=== PATIENT | female | born 1960 | race Caucasian/White ===

== ENCOUNTER 2017-08-09 15:50 | Emergency (ER) | payer BC, OTHER ==
--- NOTE | 2017-08-09 18:31 | UC ---
Respiratory Complaint HPI - HPI Summary HPI Summary: right side of mid back hurts when she takes a deep breath or coughs, has been sick with URI all week, daughter has similar symptoms - History of Current Complaint Chief Complaint: UCBackPain Stated Complaint: RIGHT SIDE BACK PAIN Time Seen by Provider: 08/09/17 18:24 Hx Obtained From: Patient Hx Last Menstrual Period: Seven months ago ?: No Onset/Duration: Gradual Onset, Lasting Days - 7, Still Present Timing: Constant Severity Initially: Mild Severity Currently: Moderate Character: Cough: Nonproductive Aggravating Factors: Deep Breaths, Recumbent Position Alleviating Factors: Nothing Associated Signs And Symptoms: Positive: Dyspnea, Pleuritic Chest Pain, Wheezing , URI, Sinus Discomfort - Allergies/Home Medications Allergies/Adverse Reactions: Allergies Allergy/AdvReac Type Severity Reaction Status Date / Time Cephalexin [From Keflex] Allergy Intermediate Rash Verified 08/09/17 16:29 Erythromycin Allergy Intermediate Hives Verified 08/09/17 16:29 Eggs or Egg-derived Products Allergy Shortness Verified 02/13/16 15:55 of Breath Soy Allergy Allergy Shortness Verified 02/13/16 15:55 of Breath PMH/Surg Hx/FS Hx/Imm Hx Previously Healthy: No - Arthritis Respiratory History: COPD - Surgical History Surgical History: Yes Surgery Procedure, Year, and Place: L lumpectomy - 2007. cervical cancer - Family History Known Family History: Positive: Unknown - Social History Occupation: Employed Full-time Lives: With Family Alcohol Use: None Substance Use Type: Prescribed Smoking Status (MU): Never Smoked Tobacco Review of Systems Constitutional: Negative Skin: Negative Eyes: Negative ENT: Negative Respiratory: Shortness Of Breath, Cough Cardiovascular: Negative Gastrointestinal: Negative Genitourinary: Negative Motor: Negative Neurovascular: Negative Musculoskeletal: Arthralgia - mid right side of her back Neurological: Negative Psychological: Negative Is Patient Immunocompromised?: Yes - on methotrexate All Other Systems Reviewed And Are Negative: No Physical Exam Triage Information Reviewed: Yes Appearance: No Pain Distress, Ill-Appearing - acute and chronic, Obese Vital Signs: Initial Vital Signs Temp 98.4 F 08/09/17 16:20 Pulse 68 08/09/17 16:20 Resp 16 08/09/17 16:20 BP 125/77 08/09/17 16:20 Pulse Ox 97 08/09/17 16:20 Vital Signs Reviewed: Yes Eye Exam: Normal Eyes: Positive: Conjunctiva Clear ENT Exam: Normal ENT: Positive: Normal ENT inspection, Hearing grossly normal, Pharynx normal, TMs normal. Negative: Nasal congestion, Nasal drainage, Trismus, Muffled/ hoarse voice Dental Exam: Normal Neck exam: Normal Neck: Positive: Supple, Nontender, No Lymphadenopathy Respiratory Exam: Normal Respiratory: Positive: Chest non-tender, No respiratory distress, No accessory muscle use, Decreased breath sounds Cardiovascular Exam: Normal Cardiovascular: Positive: RRR, No Murmur, Pulses Normal, Brisk Capillary Refill Abdominal Exam: Normal Abdomen Description: Positive: Nontender, No Organomegaly, Soft Bowel Sounds: Positive: Present Musculoskeletal Exam: Normal Musculoskeletal: Positive: Strength Intact, ROM Intact Neurological Exam: Normal Neurological: Positive: Alert, Muscle Tone Normal Psychological Exam: Normal Psychological: Positive: Normal Response To Family, Age Appropriate Behavior Skin Exam: Normal UC Diagnostic Evaluation - Laboratory O2 Sat by Pulse Oximetry: 97 - Radiology Xray Interpretation: Positive (See Comments) - COPD Radiology Interpretation Completed By: ED Physician, Radiologist Re-Evaluation - Re-Evaluation First Eval Change: Improved - after neb improved aeration of lungs, feels better Respiratory Course/Dx - Course Course Of Treatment: prednisone, zithromax, bronchodilators, increase fluids, follow with pcp - Differential Dx/Diagnosis Differential Diagnosis/HQI/PQRI: Asthma, Bronchitis, Laryngitis, Lower Resp Infection, Sinusitis Provider Diagnoses: Acute exacerbation of COPD Discharge - Discharge Plan Condition: Stable Disposition: HOME Prescriptions: Albuterol 2.5MG/3ML (0.083%)* [Ventolin 2.5 MG/3 ML NEB.DONALD*] 2.5 mg INH Q6H PRN #1 box PRN Reason: cough/wheeze/chest tightness Albuterol HFA INHALER* [Ventolin HFA Inhaler*] 2 puff INH Q6H PRN #1 mdi PRN Reason: cough/wheeze/chesttighness Azithromycin TAB* [Zithromax TAB (Z-TRIPP) 250 mg #6 tabs] 2 tab PO .TODAY, THEN 1 DAILY #6 tab predniSONE TAB* [Deltasone TAB*] 20 mg PO DAILY #9 tab Patient Education Materials: How to Use a Metered-Dose Inhaler (ED), COPD ( Chronic Obstructive Pulmonary Disease) (ED), Nutrition Guidelines for People with COPD (ED) Referrals: Davi Donovan MD [Primary Care Provider] - 3 Days
[2017-08-09] MEDS ORDERED: Albuterol/Ipratropium NEB.SOL* Albuterol 2.5 MG/Ipratropium 0.5 MG 3 ML INH ONE (18:33)
[2017-08-09] MEDS ORDERED: Albuterol 2.5 MG/3 ML NEB.SOL* (0.083%) ONE (18:41)
[2017-08-09] MEDS ORDERED: Ipratropium 0.5MG/2.5ML NEB* 0.5 MG/2.5 ML NEB.SOLN ONE (18:41)
[2017-08-09] MEDS ORDERED: Albuterol 2.5 MG/3 ML NEB.SOL* (0.083%) INH ONE (18:49)
[2017-08-09] MEDS ORDERED: Ipratropium 0.5MG/2.5ML NEB* 0.5 MG/2.5 ML NEB.SOLN INH ONE (18:49)
[2017-08-09 18:59] VITALS: BP 136/96
--- NOTE | 2017-08-09 19:01 | RAD ---
INDICATION: Chest pain and shortness of breath. History of pneumonia. Chronic obstructive pulmonary disease. COMPARISON: No relevant prior exams available on the [facility] PACS for comparison. TECHNIQUE: Dual energy PA and routine lateral views of the chest were obtained. REPORT: Elevated lung volumes and both diffuse mild prominence of the interstitial markings and patchy rarefaction of the mid to upper lung zone interstitial markings. No focal pulmonary lesion, compelling alveolar consolidation, pleural effusion, pneumothorax. The heart, pulmonary vasculature, and mediastinal contours are unremarkable. Unremarkable soft tissue contours and osseous structures. IMPRESSION: Stigmata of obstructive lung disease. No acute pulmonary or cardiac process evident.
[2017-08-09] MEDS ORDERED: Albuterol HFA INHALER* 8 gm MDI INH ONE (19:31)
== END 2017-08-09 19:27 | disposition home or self-care (01) ==
LOC: UCCORT 15:50
DX: J44.1 Chronic obstructive pulmonary disease with (acute) exacerbation (principal); M54.9 Dorsalgia, unspecified
CPT/HCPCS: 71020; 99213; A9270-GY; G0463; J7644

== ENCOUNTER 2017-10-24 17:16 | Emergency (ER) | payer BC, OTHER ==
[2017-10-24 17:28] VITALS: BP 134/69
--- NOTE | 2017-10-24 18:00 | UC ---
Respiratory Complaint HPI - HPI Summary HPI Summary: 57 yo female with COPD presents with a <48 hr hx of f/c, cough,wheezing, runny nose, sore throat and myalgias no CP no n/v/d - History of Current Complaint Chief Complaint: UCGeneralIllness Stated Complaint: UPPER RESPIRATORY COMPLAINT Time Seen by Provider: 10/24/17 17:32 Hx Obtained From: Patient Hx Last Menstrual Period: Seven months ago Onset/Duration: Gradual Onset, Lasting Hours Timing: Constant Severity Initially: Moderate Severity Currently: Moderate Pain Intensity: 4 Pain Scale Used: 0-10 Numeric Character: Cough: Nonproductive Aggravating Factors: Nothing Alleviating Factors: Nothing Associated Signs And Symptoms: Positive: Fever, Chills, Nasal Congestion, Hoarseness, Sinus Discomfort - Allergies/Home Medications Allergies/Adverse Reactions: Allergies Allergy/AdvReac Type Severity Reaction Status Date / Time Cephalexin [From Keflex] Allergy Intermediate Rash Verified 10/24/17 17:28 Erythromycin Allergy Intermediate Hives Verified 10/24/17 17:28 Eggs or Egg-derived Products Allergy Shortness Verified 10/24/17 17:28 of Breath Soy Allergy Allergy Shortness Verified 10/24/17 17:28 of Breath Home Medications: Home Medications Meloxicam(NF) [Mobic(NF)] 7.5 mg PO DAILY 10/24/17 [History Confirmed 10/24/17] PMH/Surg Hx/FS Hx/Imm Hx Previously Healthy: Yes - RA Respiratory History: COPD, Pneumonia - Surgical History Surgical History: Yes Surgery Procedure, Year, and Place: L lumpectomy - 2007. cervical cancer - Family History Known Family History: Positive: Hypertension, Diabetes, Other - RA - Social History Alcohol Use: None Substance Use Type: Prescribed Smoking Status (MU): Never Smoked Tobacco - Immunization History Most Recent Influenza Vaccination: none Review of Systems Constitutional: Fever, Chills, Fatigue Skin: Negative Eyes: Negative ENT: Sore Throat, Ear Ache, Nasal Discharge, Sinus Congestion, Sinus Pain/ Tenderness Respiratory: Cough Cardiovascular: Negative Gastrointestinal: Negative Genitourinary: Negative Motor: Negative Neurovascular: Negative Musculoskeletal: Negative Neurological: Weakness Psychological: Negative All Other Systems Reviewed And Are Negative: Yes Physical Exam Triage Information Reviewed: Yes Appearance: Well-Appearing, No Pain Distress, Well-Nourished Vital Signs: Initial Vital Signs Temp 97.6 F 10/24/17 17:24 Pulse 77 10/24/17 17:24 Resp 16 10/24/17 17:24 BP 134/69 10/24/17 17:24 Pulse Ox 98 10/24/17 17:24 Vital Signs Reviewed: Yes Eyes: Positive: Conjunctiva Clear ENT: Positive: Hearing grossly normal, Nasal congestion, Nasal drainage, Sinus tenderness, Uvula midline. Negative: TMs normal, TM bulging, TM dull, TM red, Tonsillar swelling, Tonsillar exudate, Trismus, Muffled voice, Hoarse voice, Dental tenderness Neck: Positive: Supple, Nontender, No Lymphadenopathy Respiratory: Positive: No respiratory distress, No accessory muscle use, Wheezing Cardiovascular: Positive: RRR, No Murmur Musculoskeletal: Positive: ROM Intact, No Edema Neurological: Positive: Alert Psychological Exam: Normal Skin Exam: Normal UC Diagnostic Evaluation - Laboratory O2 Sat by Pulse Oximetry: 98 - normal/not hypoxic Respiratory Course/Dx - Course Course Of Treatment: influenza (-) - Differential Dx/Diagnosis Provider Diagnoses: acute bronchitis with bronchospasm Discharge - Discharge Plan Condition: Stable Disposition: HOME Prescriptions: Albuterol HFA INHALER* [Ventolin HFA Inhaler*] 2 puff INH QID #1 mdi Amoxicillin/Clavulanate TAB* [Augmentin TAB 875*] 875 mg PO BID #20 tab Prednisone [Deltasone] 40 mg PO DAILY #10 tab Patient Education Materials: Acute Bronchitis (ED) Referrals: Davi Donovan MD [Primary Care Provider] - 3 Days (if not better) Additional Instructions: to ER for new or worsening symptoms
== END 2017-10-24 18:39 | disposition home or self-care (01) ==
LOC: UCCORT 17:16
DX: J20.9 Acute bronchitis, unspecified (principal); J44.0 Chronic obstructive pulmonary disease with (acute) lower respiratory infection; M06.9 Rheumatoid arthritis, unspecified; Z88.1 Allergy status to other antibiotic agents
CPT/HCPCS: 87502; 99212; G0463

== ENCOUNTER 2018-04-29 15:16 | Emergency (ER) | payer BC ==
--- OUTSIDE RECORDS SUMMARY | 2018-04-29 16:05 | XMS REPORT ---
:1960 External Reference #:[id number] Author Organization [facility] Address [address] [place] [id number] Phone [phone] Care Team Providers Name Role Phone Davi Donovan MD Care Team Information Newsstand Vendor Unavailable Davi Donovan MD Primary Care Physician Unavailable Payers Type Date Identification Numbers Payment Provider Subscriber Commercial Effective: Policy Number: [id number] [place] 2011 Clint PayID: [id number] [address] [place] [address] Problems Date Description Provider Status Onset: 06/08/2012 Kidney stone Behzad Hunt M.D. Active Onset: 06/08/2012 Hematuria syndrome Behzad Hunt M.D. Active Onset: 03/16/2014 Urge incontinence of urine Behzad Hunt M.D. Active Onset: 03/16/2014 Female stress incontinence Behzad Hunt M.D. Active Family History Date Family Member(s) Problem(s) Comments Father Unknown Mother Lung Cancer Free Text Denies Prostate, Bladder, Kidney Cancer. No family history of kidney stones. Social History Type Date Description Comments Marital Status Patient is single Occupation developmental aide Cigarette Use 08/22/2014 Patient is a non-smoker Cigars non-smoker Pipe non-smoker ETOH Use Patient denies alcohol use Daily Caffeine 16 oz. daily Allergies, Adverse Reactions, Alerts Date Description Reaction Status Severity Comments 06/10/2012 Erythromycin rash or hard to breath, pt unsure active 06/10/2012 Keflex rash or hard to breath, pt unsure active Medications Medication Date Status Form Strength Qnty SIG Indications Ordering Provider Myrbetriq 03/16/ Active Tablets ER 25mg 30tabs 1 by N39.41 Gilbert, 2013 24HR mouth Wen M, every day M.D. Oxycodone HCL / Active Solution 5mg/5ML 4cc po q6 Unknown 0000 hr prn Morphine / Active Caps ER 30mg Unknown Sulfate ER 0000 24HR Morphine / Active Tablets 15mg TK 1 T PO Unknown Sulfate 0000 bid Utd. MDD 2 TS. Oxycodone HCL / Active Tablets 5mg TK 1 T PO Unknown 0000 Q 4 To 6 H Utd. MDD 4 TS. Folic Acid / Active Tablets 2mg Unknown 0000 Methotrexate / Active Tablets 2.5mg 7 pills Unknown 0000 daily Potassium / Active Tablets 75mg Unknown 0000 Vitamin D / Active Tablets 1000Unit 1 by Unknown 0000 mouth every day Calcium / Active Capsules 200-100-33 Unknown 600/Magnesium 0000 .3mg-mg-Un 300/Vitamin D it Amrix / Hx Caps ER 15mg Unknown 0000 - 24HR 2017 Methotrexate / Hx Tablets 2.5mg Take 4 Unknown 0000 - Tablets 02/10/ By Mouth 2017 Once A Week Vital Signs Date Vital Result Comment 02/11/2018 Height 60 inches 5'0" Weight 196.00 lb Weight in kg's 88.906 BMI (Body Mass Index) 38.3 kg/m2 BP Systolic 123 mmHg BP Diastolic 56 mmHg Heart Rate 75 /min 02/22/2015 Height 60 inches 5'0" Weight 217.00 lb Weight in kg's 98.431 BMI (Body Mass Index) 42.4 kg/m2 BP Systolic 127 mmHg right wrist audio BP Diastolic 86 mmHg right wrist audio Heart Rate 86 /min Body Temperature 98.9 F 02/21/2014 Height 60 inches 5'0" Weight 203.00 lb Weight in kg's 92.081 BMI (Body Mass Index) 39.6 kg/m2 BP Systolic 115 mmHg left wrist audio BP Diastolic 70 mmHg left wrist audio Heart Rate 76 /min Body Temperature 99.1 F 06/08/2012 Height 61 inches 5'1" Weight 188.00 lb Weight in kg's 85.277 BMI (Body Mass Index) 35.5 kg/m2 BP Systolic 122 mmHg right BP Diastolic 75 mmHg right Heart Rate 75 /min Post Void Residual 30 Body Temperature 97.7 F Results Test Date Test Result H/L Range Note 230 Ua Routine 02/11/2018 Ua Glucose Negative Ua Protein Negative Ua Nitrite Negative Ua Leuko Trace Ua Blood Negative Ua Color Yellow Ua Ketones Negative Ua Clarity Clear Ua Specific Morton 1.020 1.003-1.030 Ua PH 6.5 5.0-7.5 Ua Bilirubin Negative Ua Urobilinogen 1.0 E.U./dL 0.0-1.0 #Ua Routine 02/22/2015 Ua Glucose Negative Ua Protein Negative Ua Nitrite Negative Ua Leuko Negative Ua Blood Negative Ua Color yellow Ua Ketones Negative Ua Clarity clear Ua Specific Morton >=1.030 1.003-1.030 Ua PH 5.5 5.0-7.5 Ua Bilirubin Negative Ua Urobilinogen 1.0 E.U./dL 0.0-1.0 #Ua Routine 08/23/2014 Ua Glucose Negative Ua Protein Negative Ua Nitrite Negative Ua Leuko Trace Ua Blood Negative Ua Color yellow Ua Ketones Negative Ua Clarity clear Ua Specific Morton 1.015 1.003-1.030 Ua PH 7.5 5.0-7.5 Ua Bilirubin Negative Ua Urobilinogen 0.2 E.U./dL 0.0-1.0 Urine Culture Straight Cath 03/07/2014 Result (SEE NOTE) 1 #Ua Routine 02/21/2014 Ua Glucose Negative Ua Protein Negative Ua Nitrite Negative Ua Leuko Trace Ua Blood Negative Ua Color yellow Ua Ketones Negative Ua Clarity clear Ua Specific Morton 1.025 1.003-1.030 Ua PH 5.5 5.0-7.5 Ua Bilirubin Negative Ua Urobilinogen 0.2 E.U./dL 0.2-1 #Ua Routine 02/22/2013 Ua Glucose Negative Ua Protein Negative Ua Nitrite Negative Ua Leuko Trace Ua Blood Negative Ua Color Not Entered Ua Ketones Negative Ua Clarity Not Entered Ua Specific Morton 1.025 Ua PH 5.0 Ua Bilirubin Negative Ua Urobilinogen 0.2 E.U./dL #Ua Routine 06/18/2012 Ua Glucose Negative Ua Protein Negative Ua Nitrite Negative Ua Leuko Negative Ua Blood Negative Ua Color Not Entered Ua Ketones Negative Ua Clarity Not Entered Ua Specific Morton 1.010 Ua PH 5.5 Ua Bilirubin Negative Ua Urobilinogen 0.2 E.U./dL Culture Urine 06/08/2012 Result (SEE NOTE) 2 Laboratory test finding 06/08/2012 Urine Cytology Void (Amp/CBL) X #Ua Routine 06/08/2012 Ua Glucose Negative Ua Protein Negative Ua Nitrite Negative Ua Leuko Negative Ua Blood Negative Ua Color Not Entered Ua Ketones Negative Ua Clarity Not Entered Ua Specific Morton 1.025 Ua PH 7.0 Ua Bilirubin Negative Ua Urobilinogen 1.0 E.U./dL 1 GENERAL COMMENTS: Urogenital tomi, consisting of Gram positive bacillus 10,000 - 20,000 CFU/ mL. Mixed diphtheroids 10,000-20,000 CFU/mL. ORGANISM 1: PRESUMPTIVE CORYNEBACTERIUM UREALYTICUM COLONY COUNT: 10,000 - 20,000 CFU/mL --- S=Sensitive I=Intermediate R=Resistant IB=Inducible Beta-lactamase. Appears in place of "Suceptible" with species known to possess inducible beta-lactamases. Potentially, they may become resistant to all beta-lactam drugs. Monitoring of p atients during/after therapy is recommended. Avoid other/combined beta- lactam drugs. 2 GENERAL COMMENTS: Greater than 100,000 CFU/ml, mixed urogenital tomi consisting of diphtheroids. No further identification or susceptibility performed, due to organism's questionable significance. --- S=Sensitive I=Intermediate R=Resistant IB=Inducible Beta-lactamase. Appears in place of "Suceptible" with species known to possess inducible beta-lactamases. Potentially, they may become resistant to all beta-lactam drugs. Monitoring of p atients during/after therapy is recommended. Avoid other/combined beta- lactam drugs. Procedures Date CPT Code Description Status 02/23/2018 36436 Ultrasound Retro Renal Real Time With Image Limited Completed Tech 10/17/2017 Mammogram Completed 03/16/2014 32584 Cystourethroscopy, Separate Procedure Completed 03/07/2014 31620 Urodynamics, Voiding Pressure Studies Intra Abdominal Completed Global 03/07/2014 44286 Urodynamics, Electromyography Studies EMG Of Anal Or Completed Urethral S 03/07/2014 40709 Urodynamics, Complex Uroflowmetry Eg Calibrated Completed Electronic Office 03/07/2014 64965 Complex Cystometrogram, With Voiding Pressure Studies Completed Global 02/21/2014 05051 Ultrasound Retro Renal Real Time With Image Limited Completed Global 02/22/2013 21023 Ultrasound Retro Renal Real Time With Image Completed 06/18/2012 12258 Cystourethroscopy, Separate Procedure Completed 06/08/2012 15602 Bladder Scan, Post Voiding Residual Urine Completed Encounters Type Date Location Provider CPT E/M Dx Office Visit 04/15/2018 10:00a [facility] [address] N20.0 Urology Esme Menezes N39.41 Office Visit 02/11/2018 3:50p [facility] [address] N39.41 N39.3 N20.0 Office Visit 02/22/2015 10:00a [facility] [place] [address] 788.31 625.6 592.0 Office Visit 08/23/2014 10:10a [facility] Behzad Hutn [address]7413 788.31 M.D. 788.41 788.43 Office Visit 03/16/2014 12:30p [facility] [place] 70724 788.31 M.D. 625.6 592.0 Office Visit 02/21/2014 12:20p [facility] Behzad Hunt 08481 592.0 M.D. 788.31 625.6 Office Visit 02/22/2013 12:45p [facility] [address]39 592.0 599.70 Office Visit 06/18/2012 10:20a [facility] Mg[facility]ita Behzad Monreal, [address] 592.0 M.D. 599.70 Office Visit 06/08/2012 11:40a [facility] Behzad Monreal, 880[address] 599.0 M.D. 592.0 599.70 Plan of Care 04/15/2018 - Ralf Menezes,P.A.N20.0 Calculus of kidneyNew Xrays:US Retroperitoneal Complete (Kidneys/Bladder)Comments:Recent ultrasound from February suggests a 3 mm right lower pole stone. This is been consistently thereincluding a CT from 2011. No hydronephrosis. No cystic or solid mass. Patient is reassured. Call forhis reviewed.N39.41 Urge incontinenceNew Xrays:US Retroperitoneal Complete (Kidneys/Bladder)Comments:Retrial Myrbetriq 25 mg samples provided. Dosing and side effects reviewed. Prescription faxed pharmacy.
[2018-04-29 16:16] VITALS: BP 133/72
--- NOTE | 2018-04-29 17:14 | UC ---
UC General HPI - HPI Summary HPI Summary: 57 yo lady c/o last several days progressively worse sore throat, congestion, and recently canker sores. She takes MTX d/t psoriatic arthritis, reports that she and doctor are considering d/c-ing MTX and starting Eva or similar. She is concerned about sore throat because a household member just developed sx, and she has been exposed to strep very recently on more than one occasion. No rash. No sob / cp / palpitations. No GI concerns. Minimal cough. - History of Current Complaint Chief Complaint: UCGeneralIllness Stated Complaint: SORE THROAT Time Seen by Provider: 04/29/18 16:21 Hx Obtained From: Patient Hx Last Menstrual Period: Seven months ago Pain Intensity: 7 - Allergy/Home Medications Allergies/Adverse Reactions: Allergies Allergy/AdvReac Type Severity Reaction Status Date / Time cephalexin [From Keflex] Allergy Rash Verified 04/29/18 16:27 egg Allergy Shortness Verified 04/29/18 16:27 of Breath erythromycin base Allergy Hives Verified 04/29/18 16:27 soy Allergy Shortness Verified 04/29/18 16:27 of Breath Home Medications: Home Medications Calcium Carb,Gluc/Mag Ox,Gluc [Calcium Magnesium Caplet] 1 each PO DAILY [History Confirmed 04/29/18] Potassium Chlor TAB* [Klor Con ER TAB 10 MEQ*] 10 meq PO DAILY 04/29/18 [ History Confirmed 04/29/18] PMH/Surg Hx/FS Hx/Imm Hx Endocrine History: Other - psoriatic arthritis Other Endocrine History: see above - Surgical History Surgical History: Yes Surgery Procedure, Year, and Place: L lumpectomy - 2007. cervical cancer - Family History Known Family History: Positive: Hypertension, Diabetes, Other - RA - Social History Alcohol Use: None Substance Use Type: None Smoking Status (MU): Never Smoked Tobacco - Immunization History Most Recent Influenza Vaccination: none Review of Systems Constitutional: Fatigue Skin: Negative Eyes: Negative ENT: Sore Throat, Sinus Congestion, Other - see hpi Respiratory: Negative Cardiovascular: Negative Gastrointestinal: Negative Genitourinary: Negative Motor: Negative Neurovascular: Negative Musculoskeletal: Negative Neurological: Negative Psychological: Negative Is Patient Immunocompromised?: No All Other Systems Reviewed And Are Negative: Yes Physical Exam Triage Information Reviewed: Yes Appearance: Well-Nourished - looks tired, but nad Vital Signs: Initial Vital Signs Temp 98.3 F 04/29/18 16:08 Pulse 69 04/29/18 16:08 Resp 16 04/29/18 16:08 BP 133/72 04/29/18 16:08 Pulse Ox 98 04/29/18 16:08 Eye Exam: Normal - grossly normal ENT: Positive: Pharyngeal erythema - post pharyng redness, uvula midline, no exudates appreciated several apthous ulcers over gums and under tongue, various stages., TM dull - dull au tm Neck exam: Other - mild adenopathy R ant cerv region Neck: Positive: Supple, Nontender Respiratory Exam: Normal Respiratory: Positive: Chest non-tender, Lungs clear, Normal breath sounds, No respiratory distress, No accessory muscle use Cardiovascular Exam: Normal Cardiovascular: Positive: RRR, No Murmur, Pulses Normal, Brisk Capillary Refill Abdominal Exam: Normal Abdomen Description: Positive: Nontender Musculoskeletal Exam: Normal - gait steady, moves x 4 ext's Neurological Exam: Normal - grossly nonfocal, detailed neuro exam not done Psychological Exam: Normal - conversing easily and appropriately Skin Exam: Normal - no visible or reported rash Course/Dx - Course Course Of Treatment: RST negative. Given hx immunosuppression, and several close ill contacts, she would like to consider abx. Reports that she has taken azithromycin several times in the past without issue (I note allergy erythromycin). She agrees to wait until sx improve until starting azithromycin. She has been using benadryl / maalox otc re canker sores, plans to ask her doctor about lysine / vit b complex (she is taking folate already d/ t mtx). Reviewed coa / tx plan. Questions as posed answered to the best of my ability. - Differential Dx - Multi-Symptom Provider Diagnoses: Pharyngitis. Apthous ulcers Discharge - Sign-Out/Discharge Documenting (check all that apply): Discharge/Admit/Transfer - Discharge Plan Condition: Stable Disposition: HOME Prescriptions: Azithromyxin ESTEBAN (NF) [Z-Esteban (Zithromax) 250 mg tabs #6] 2 tab PO .TODAY, THEN 1 DAILY #6 tab Patient Education Materials: Pharyngitis (ED), Canker Sores (ED) Referrals: Davi Donovan MD [Primary Care Provider] - Additional Instructions: Follow up with your primary care physician, next week if possible. Seek medical attention for worse or new problems. Consider (check with your doctor) about Vitamin B complex / Lysine. (luda forman). - Billing Disposition and Condition Condition: STABLE Disposition: Home
== END 2018-04-29 17:18 | disposition home or self-care (01) ==
LOC: UCCORT 15:16
DX: J02.9 Acute pharyngitis, unspecified (principal); K12.0 Recurrent oral aphthae; L40.50 Arthropathic psoriasis, unspecified; Z88.1 Allergy status to other antibiotic agents; Z91.012 Allergy to eggs; Z91.018 Allergy to other foods
CPT/HCPCS: 87651; 99212; G0463

== ENCOUNTER 2018-07-20 14:38 | Emergency (ER) | payer BC ==
--- OUTSIDE RECORDS SUMMARY | 2018-07-20 14:46 | XMS REPORT ---
:1960 External Reference #:[id number] Author Organization [facility] Address [address] [place] [address] Phone [phone] Care Team Providers Name Role Phone Davi Donovan MD Primary Care Physician Unavailable Payers Type Date Identification Numbers Payment Provider Subscriber Health Maintenance Policy Number: Noel Christian Marylin Jaramillo Organization (O) [id number] Claims PayID: [id number] [address] [place] [address] Problems Date Description Provider Status Onset: 01/01/2012 Impaired fasting glycaemia Davi Donovan MD Active Onset: 01/01/2012 Malaise and fatigue Davi Donovan MD Active Onset: 09/06/2014 Arthralgia of the pelvic region and thigh Davi Donovan MD Active Onset: 09/23/2014 Osteoarthritis Davi Donovan MD Active Family History Date Family Member(s) Problem(s) Comments General Hypertension General Lung Cancer General Chronic Obstructive Pulmonary Disease (COPD) General Emphysema General Diabetes Mellitus, II Father Hernia Complications Mother Hypertension Mother Hyperlipidemia Mother Lung Cancer,DM,HTN,CVA Maternal Grandmother Breast Cancer Grandmother breast cancer Social History Type Date Description Comments Cigarette Use Never Smoked Cigarettes ETOH Use Denies alcohol use Smoking Patient has never smoked Allergies, Adverse Reactions, Alerts Date Description Reaction Status Severity Comments 02/09/2015 NKDA active 07/20/2009 Flu Vac active Medications Medication Date Status Form Strength Qnty SIG Indications Ordering Provider Potassium 10/28/ Active Tablets ER 20Meq 90tabs 1 by Elyn Chloride ER 2016 mouth RingMD every day Mupirocin 12/27/ Active Cream 2% 30gm apply to Elyn Calcium 2017 chest and MD Zion back as needed Claritin / Active Capsules 10mg 90caps 1 po qd Unknown 0000 Oxycodone HCL / Active Capsules 5mg 120cap tab 1 po Pitts, 0000 s q 4-6hr Dillon prn Morphine / Active Tablets 15mg 60tabs 1 po q12h Pitts, Sulfate 0000 hospice Dillon patient Methotrexate / Active Tablets 2.5mg Unknown 0000 Folic Acid / Active Tablets 1mg 2 by Unknown 0000 mouth every day Proair HFA / Active Aerosol 108(90Base 2 puffs 4 Unknown 0000 ) mcg/Act x daily Magnesium / Active Tablets 400mg daily Unknown 0000 Zinc / Active Tablets 50mg daily Unknown 0000 Vitamin D-1000 / Active Tablets 1000Unit 1 by Unknown Maximum 0000 mouth Strength every day Spiriva / Active Capsules 18mcg one puff Unknown Handihaler 0000 every day Symbicort / Active Aerosol 160-4.5mcg 2 puffs Unknown 0000 /Act by mouth twice a day Myrbetriq / Active Tablets ER 25mg Unknown 0000 24HR Prednisone 01/26/ Hx Tablets 20mg 8tabs 2 by Hilaria Nugent 2018 - mouth MD Sabrina 03/02/ every day 2018 Zithromax 01/26/ Hx Tablets 250mg 6pills 2 by Hilaria Nugent 2017 - mouth day MD Sabrina , 1 by 2018 mouth every day x days 2-5 Levaquin 12/31/ Hx Tablets 500mg 10tabs 1 by Lesly 2016 - mouth Sabrina 05/27/ every day M.D. 2016 Amoxicillin/Cl 12/27/ Hx Tablets 500-125mg 20tabs 1 by Davi jacinto 2016 - mouth MD Zion Potassium 12/31/ twice a 2016 day Famciclovir 12/27/ Hx Tablets 500mg 21tabs 1 by Davi Donovan MD 10/28/ three 2016 times a day Amoxicillin 02/09/ Hx Capsules 500mg 30caps 1 by Davi 2014 Les Donovan MD 05/18/ three 2014 times a day x 10 days Spiriva 01/01/ Hx Capsules 18mcg 3caps one puff Davi Handihaler 2011 - qd MD Zion 2013 Proair HFA 01/01/ Hx Aerosol 108(90Base 6y 2 puffs Elyn 2011 - ) mcg/ac 4 x daily Zion, 2013 Zithromax 12/25/ Hx Tablets 250mg 6pills 2 po day Davi 2011 - , 1 po Ring, 01/01/ qd x days 2011 2-5 Vitamin D-3 02/22/ Hx Tablets 2000Unit daily otc Elyn Super Strength 2009 - Ring, 2013 Azithromycin 02/22/ Hx Tablets 250mg 6tabs 2 po Elyn 2009 - today, 1 Ring, 12/25/ po day 2 2011 thru 5 Zithromax 10/03/ Hx Tablets 250mg 6pills 2 po day Davi 2008 - , 1 po Ring, 10/31/ qd x days 2008 2-5 Advair Diskus 07/20/ Hx Misc 250/50 3Month 1 puff Davi 2008 - bid MD Zion 2011 Veramyst 07/20/ Hx Suspension 27.5mcg/Sp 3units 2 spray Davi 2008 - ray to ea. Zion MD 12/25/ nare qd 2011 Potassium 07/20/ Hx Tablets 20Meq 90tabs 1 po qd Elyn Chloride 2008 - Zion, 2011 Furosemide 07/20/ Hx Tablets 40mg 30tabs 1 po qd Mgyn 2009 - MD Zion 2011 Celebrex 07/20/ Hx Capsules 200mg 180cap 1 po bid Davi 2008 - s MD Zion 2008 Claritin OTC 07/20/ Hx Tablets 10mg 1 po qhs Davi Clifford - MD Zion 2013 Avinza / Hx Caps ER 24HR 30mg 1 tab po Pitts, 0000 - qd Dillon 2011 Opana / Hx Tablets 5mg 1 po q4-6 Unknown 0000 - hr prn 2013 Tizanidine HCL / Hx Tablets 4mg 1/2-1 po Unknown 0000 - tid 2013 Celebrex / Hx Capsules 200mg 60caps 1 po bid Unknown 0000 - with food 2013 Naomi / Hx Caps ER 24HR 30mg 1 po q12h Unknown 0000 - 2013 Myrbetriq / Hx Tablets ER 25mg 1 tab po Deven, 0000 - 24HR qd Arnold 2016 Amrix / Hx Caps ER 24HR 15mg Unknown 0000 - 2015 Celebrex / Hx Capsules 200mg 60caps 1 po bid Unknown 0000 - with food 2014 Immunizations CPT Code Status Date Vaccine Lot # [id number] Given 07/20/2009 Tetanus,Diphtheria,Adut/Adol Pertussis [id number] Vital Signs Date Vital Result Comment 07/09/2018 BP Systolic 154 mmHg BP Diastolic 84 mmHg Height 58 inches 4'10" Weight 185.00 lb BMI (Body Mass Index) 38.7 kg/m2 03/02/2018 BP Systolic 140 mmHg BP Diastolic 72 mmHg Height 58 inches 4'10" Weight 184.00 lb BMI (Body Mass Index) 38.5 kg/m2 01/26/2018 BP Systolic 130 mmHg BP Diastolic 80 mmHg Heart Rate 74 /min Body Temperature 98.0 F Height 58 inches 4'10" Weight 188.00 lb BMI (Body Mass Index) 39.3 kg/m2 O2 % BldC Oximetry 97 % 01/09/2018 BP Systolic 128 mmHg BP Diastolic 70 mmHg Weight 188.00 lb 01/09/2018 BP Systolic 144 mmHg BP Diastolic 80 mmHg Heart Rate 67 /min Respiratory Rate 18 /min Height 58.5 inches 4'10.50" Weight 193.00 lb BMI (Body Mass Index) 39.6 kg/m2 O2 % BldC Oximetry 99 % 10/28/2017 BP Systolic 138 mmHg BP Diastolic 72 mmHg Respiratory Rate 18 /min Height 58.5 inches 4'10.50" Weight 193.00 lb BMI (Body Mass Index) 39.6 kg/m2 05/27/2017 BP Systolic 120 mmHg BP Diastolic 80 mmHg Height 58 inches 4'10" Weight 192.00 lb BMI (Body Mass Index) 40.1 kg/m2 12/27/2016 BP Systolic 118 mmHg BP Diastolic 60 mmHg 10/31/2016 BP Systolic 126 mmHg BP Diastolic 72 mmHg Height 58 inches 4'10" Weight 202.00 lb BMI (Body Mass Index) 42.2 kg/m2 04/16/2016 BP Systolic 130 mmHg BP Diastolic 80 mmHg Height 58 inches 4'10" Weight 197.00 lb BMI (Body Mass Index) 41.2 kg/m2 10/16/2015 BP Systolic 120 mmHg BP Diastolic 84 mmHg Height 58 inches 4'10" Weight 198.00 lb BMI (Body Mass Index) 41.4 kg/m2 05/18/2015 BP Systolic 130 mmHg BP Diastolic 86 mmHg Height 58 inches 4'10" Weight 209.00 lb BMI (Body Mass Index) 43.7 kg/m2 02/09/2015 BP Systolic 146 mmHg BP Diastolic 82 mmHg Height 58 inches 4'10" Weight 210.00 lb BMI (Body Mass Index) 43.9 kg/m2 10/07/2014 BP Systolic 132 mmHg BP Diastolic 70 mmHg Height 58 inches 4'10" Weight 205.00 lb BMI (Body Mass Index) 42.8 kg/m2 09/23/2014 BP Systolic 130 mmHg BP Diastolic 80 mmHg 09/06/2014 BP Systolic 158 mmHg BP Diastolic 90 mmHg 04/05/2014 BP Systolic 118 mmHg BP Diastolic 70 mmHg Height 59 inches 4'11" Weight 202.00 lb BMI (Body Mass Index) 40.8 kg/m2 01/01/2012 BP Systolic 118 mmHg BP Diastolic 76 mmHg Height 59 inches 4'11" Weight 194.00 lb BMI (Body Mass Index) 39.2 kg/m2 12/25/2011 BP Systolic 130 mmHg BP Diastolic 78 mmHg Body Temperature 96.3 F Height 59 inches 4'11" Weight 197.00 lb BMI (Body Mass Index) 39.8 kg/m2 02/22/2010 BP Systolic 120 mmHg BP Diastolic 70 mmHg Body Temperature 97.8 F 10/31/2009 BP Systolic 130 mmHg BP Diastolic 92 mmHg Weight 200.00 lb 10/03/2009 BP Systolic 118 mmHg BP Diastolic 70 mmHg Height 59 inches 4'11" Weight 202.00 lb BMI (Body Mass Index) 40.8 kg/m2 08/01/2009 BP Systolic 120 mmHg BP Diastolic 90 mmHg Weight 195.00 lb 07/20/2009 BP Systolic 92 mmHg BP Diastolic 56 mmHg Height 59 inches 4'11" Weight 197.00 lb BMI (Body Mass Index) 39.8 kg/m2 Results Test Date Test Result H/L Range Note CBS W/Automated Diff 07/04/2018 White Blood Count 5.4 K/uL 3.1-10.7 1 Red Blood Count 4.72 M/uL 3.90-5.40 1 Hemoglobin 14.7 gm/dL 11.6-15.8 1 Hematocrit 42.5 % 36.0-46.1 1 Mean Cell Volume 90.0 fl 80.9-99.0 1 Mean Corpuscular HGB 31.1 pg 25.9-32.7 1 Mean Corpuscular HGB Conc 34.6 g/dL High 30.8-34.3 1 Platelet Count 205 K/uL 155-360 1 Red Cell Distri Width SD 41.4 fl 3-47 1 Red Cell Distri Width %CV 13.0 % 11.7-14.4 1 Mean Platelet Volume 10.0 fL 8.9-12.4 1 Neut% 51.6 % 40.4-72.8 1 Lymph % 32.4 % 20.0-42.0 1 [place] % 9.3 % 4.3-13.2 1 Eo% 6.1 % 0.0-6.6 1 Bas% 0.6 % 0.0-1.1 1 Neut# 2.79 K/uL 1.8-7.0 1 Lymph # 1.75 K/uL 1.0-4.0 1 [place] # 0.50 K/uL 0.3-0.9 1 Eos # 0.33 K/uL 0.0-0.5 1 Baso # 0.03 K/uL 0.0-0.1 1 Comprehensive Metabolic Panel 07/04/2018 Glucose 92 mg/dL 74-106 1 BUN 18 mg/dL 7-18 1 Creatinine 1.0 mg/dL 0.6-1.3 1 Glom Filtration Rate, Estimate >60 mL/min >60 1 If >60 mL/min >60 1, 2 BUN/Creat 18.0 ratio 1 Sodium 143 mmol/L 136-145 1 Potassium 3.7 mmol/L 3.5-5.1 1 Chloride 108 mmol/L High 98-107 1 Carbon Dioxide 27 mmol/L 21-32 1 Anion Gap 8 mEq/L 8-16 1 Calcium 8.7 mg/dL 8.5-10.1 1 Total Protein 7.0 g/dL 6.4-8.2 1 Albumin 3.5 g/dL 3.4-5.0 1 Globulin 3.5 g/dL 1.9-4.3 1 Alb/Glob 1.0 ratio 1 Bilirubin,Total 0.5 mg/dL 0.2-1.0 1 Sgot/Ast 15 U/L 15-37 1 SGPT/Alt 21 U/L 12-78 1 Alkaline Phosphatase 73 U/L 45-117 1 Laboratory test finding 04/29/2018 Rapid Strep Molecular Negative Negative 3 Vitamin D Fractionated 10/27/2017 25-Hydroxy,Vitamin D 21 ng/mL Low . 4, 5 25-Hydroxy,Vitamin D-2 1.1 ng/mL . 4 25-Hydroxy,Vitamin D-3 20 ng/mL . 4, 6 Comprehensive Metabolic Panel 10/27/2017 Glucose 86 mg/dL 74-106 4 BUN 20 mg/dL High 7-18 4 Creatinine 1.0 mg/dL 0.6-1.3 4 Glom Filtration Rate, Estimate >60 mL/min >60 4 If >60 mL/min >60 4, 7 BUN/Creat 20.0 ratio 4 Sodium 143 mmol/L 136-145 4 Potassium 3.2 mmol/L Low 3.5-5.1 4 Chloride 108 mmol/L High 98-107 4 Carbon Dioxide 30 mmol/L 21-32 4 Anion Gap 5 mEq/L Low 8-16 4 Calcium 8.8 mg/dL 8.5-10.1 4 Total Protein 7.0 g/dL 6.4-8.2 4 Albumin 3.5 g/dL 3.4-5.0 4 Globulin 3.5 g/dL 1.9-4.3 4 Alb/Glob 1.0 ratio 4 Bilirubin,Total 0.5 mg/dL 0.2-1.0 4 Sgot/Ast 16 U/L 15-37 4 SGPT/Alt 25 U/L 12-78 4 Alkaline Phosphatase 65 U/L 45-117 4 Lipid Panel 10/27/2017 Cholesterol 157 mg/dL <200 4, 8 Triglycerides 136 mg/dL <150 4, 9 HDL Cholesterol 45 mg/dL >40 4, 10 LDL-Cholesterol 85 mg/dL < 100 4, 11 CBC W/ Diff & PLT 10/27/2017 White Blood Count 9.6 K/uL 3.1-10.7 4 Red Blood Count 4.15 M/uL 3.90-5.40 4 Hemoglobin 13.3 gm/dL 11.6-15.8 4 Hematocrit 38.0 % 36.0-46.1 4 Mean Cell Volume 91.6 fl 80.9-99.0 4 Mean Corpuscular HGB 32.0 pg 25.9-32.7 4 Mean Corpuscular HGB Conc 35.0 g/dL High 30.8-34.3 4 Platelet Count 251 K/uL 155-360 4 Red Cell Distri Width SD 47.2 fl High 3-47 4 Red Cell Distri Width %CV 14.6 % High 11.7-14.4 4 Mean Platelet Volume 9.5 fL 8.9-12.4 4 Neut% 56.6 % 40.4-72.8 4 Lymph % 35.0 % 20.0-42.0 4 [place] % 7.3 % 4.3-13.2 4 Eo% 0.6 % 0.0-6.6 4 Bas% 0.5 % 0.0-1.1 4 Neut# 5.40 K/uL 1.8-7.0 4 Lymph # 3.34 K/uL 1.0-4.0 4 [place] # 0.70 K/uL 0.3-0.9 4 Eos # 0.06 K/uL 0.0-0.5 4 Baso # 0.05 K/uL 0.0-0.1 4 General Health Panel 10/27/2017 Thyroid Stim Hormone 4.94 uIU/mL High 0.30 -4.20 4 [facility] Free T4 1.19 ng/dL 0.76-1.46 4 Rapid Influenza A & B 10/24/2017 Influenza A Molecular NEGATIVE Negative 12 Molecular Influenza B Molecular NEGATIVE Negative Culture Wound Superficial 12/27/2016 Source WOUND-SCALP Preliminary Report SEE NOTE 13 Interim Report PENDING Final Report PENDING Organism #1 SEE NOTE 14 Organism #2 PENDING Organism #3 PENDING Organism #4 PENDING Comment PENDING Sensitivities Org 1 [employer] [id number] 12/27/2016 Ampicillin PENDING Ciprofloxacin S (<=0.5) Clindamycin S (<=0.25) Erythromycin R (>=8) Gentamicin S (<=0.5) Gentamicin Synergy PENDING Levofloxacin S (<=0.12) Linezolid S (2) Moxifloxacin S (<=0.25) Nitrofurantoin PENDING Oxacillin S (0.5) Penicillin R (>=0.5) Rifampin PENDING Streptomycin Synergy PENDING Synercid S (0.5) Tetracycline S (<=1) Tigecycline PENDING Trimethoprim/Sulfa S (<=10) Vancomycin S (<=0.5) 15 Laboratory test finding 10/03/2016 Thyroid Stim Hormone 3.77 uIU/mL 0.30- 4.20 16 Free T4 1.27 ng/dL 0.76-1.46 16 LDL Cholesterol Profile 10/03/2016 Cholesterol 140 mg/dL <200 16, 17 Triglycerides 93 mg/dL <150 16, 18 HDL Cholesterol 48 mg/dL >40 16, 19 LDL-Cholesterol 73 mg/dL < 100 16, 20 Comprehensive Metabolic Panel 10/03/2016 Glucose 91 mg/dL 74-106 16 BUN 13 mg/dL 7-18 16 Creatinine 1.0 mg/dL 0.6-1.3 16 Glom Filtration Rate, Estimate >60 mL/min >60 16 If >60 mL/min >60 16, 21 BUN/Creat 13.0 ratio 16 Sodium 145 mmol/L 136-145 16 Potassium 3.8 mmol/L 3.5-5.1 16 Chloride 110 mmol/L High 98-107 16 Carbon Dioxide 30 mmol/L 21-32 16 Anion Gap 5 mEq/L Low 8-16 16 Calcium 8.0 mg/dL Low 8.5-10.1 16 Liver Function Tests 10/03/2016 Total Protein 6.6 g/dL 6.4-8.2 16 Albumin 3.3 g/dL Low 3.4-5.0 16 Globulin 3.3 g/dL 1.9-4.3 16 Alb/Glob 1.0 ratio 16 Bilirubin,Total 0.4 mg/dL 0.2-1.0 16 Bilirubin,Direct 0.1 mg/dL 0.0-0.2 16 Bilirubin,Indirect 0.3 mg/dL 0.0-0.9 16 Sgot/Ast 22 U/L 15-37 16 SGPT/Alt 35 U/L 12-78 16 Alkaline Phosphatase 62 U/L 45-117 16 CBC W/ Diff & PLT 10/03/2016 White Blood Count 5.2 K/uL 3.1-10.7 16 Red Blood Count 4.51 M/uL 3.90-5.40 16 Hemoglobin 13.9 gm/dL 11.6-15.8 16 Hematocrit 41.2 % 36.0-46.1 16 Mean Cell Volume 91.4 fl 80.9-99.0 16 Mean Corpuscular HGB 30.8 pg 25.9-32.7 16 Mean Corpuscular HGB Conc 33.7 g/dL 30.8-34.3 16 Platelet Count 204 K/uL 155-360 16 Red Cell Distri Width SD 45.4 fl 3-47 16 Red Cell Distri Width %CV 14.3 % 11.7-14.4 16 Mean Platelet Volume 9.7 fL 8.9-12.4 16 Neut% 46.7 % 40.4-72.8 16 Lymph % 35.3 % 17.0-46.1 16 [place] % 11.8 % 4.3-13.2 16 Eo% 5.6 % 0.0-6.6 16 Bas% 0.6 % 0.0-1.1 16 Neut# 2.41 K/uL 1.8-7.0 16 Lymph # 1.82 K/uL 1.8-7.0 16 [place] # 0.61 K/uL 0.3-0.9 16 Eos # 0.29 K/uL 0.0-0.5 16 Baso # 0.03 K/uL 0.0-0.1 16 BMP W/O Egfr 04/16/2016 Glucose 105 mg/dL 74-106 BUN 15 mg/dL 7-18 Creatinine 1.0 mg/dL 0.6-1.3 Glom Filtration Rate, Estimate >60 mL/min >60 If >60 mL/min >60 22 BUN/Creat 15.0 ratio Sodium 142 mmol/L 136-145 Potassium 3.7 mmol/L 3.5-5.1 Chloride 109 mmol/L High 98-107 Carbon Dioxide 26 mmol/L 21-32 Anion Gap 7 mEq/L Low 8-16 Calcium 8.6 mg/dL 8.5-10.1 Glycohemoglobin A1c 04/16/2016 Glycohemoglobin (A1c) 5.8 % 4.2-6.3 23 eAG 120 mg/dL Rapid Influenza A & B 02/13/2016 Influenza A Molecular NEGATIVE Negative 24 Molecular Influenza B Molecular NEGATIVE Negative Laboratory test finding 10/09/2015 Bilirubin,Direct < 0.1 mg/dL 0.0-0.2 LDL Cholesterol Profile 10/09/2015 Cholesterol 147 mg/dL <200 25 Triglycerides 73 mg/dL <150 26 HDL Cholesterol 43 mg/dL >40 27 LDL-Cholesterol 89 mg/dL < 100 28 CBS W/Automated Diff 10/09/2015 White Blood Count 4.7 K/uL 3.1-10.7 Red Blood Count 4.50 M/uL 3.90-5.40 Hemoglobin 14.0 gm/dL 11.6-15.8 Hematocrit 41.0 % 36.0-46.1 Mean Cell Volume 91.1 fl 80.9-99.0 Mean Corpuscular HGB 31.1 pg 25.9-32.7 Mean Corpuscular HGB Conc 34.1 g/dL 30.8-34.3 Platelet Count 219 K/uL 155-360 Red Cell Distri Width SD 43.1 fl 3-47 Red Cell Distri Width %CV 13.2 % 11.7-14.4 Mean Platelet Volume 10.2 fL 8.9-12.4 Neut% 48.4 % 40.4-72.8 Lymph % 36.8 % 17.0-46.1 [place] % 7.1 % 4.3-13.2 Eo% 7.3 % High 0.0-6.6 Bas% 0.4 % 0.0-1.1 Neut# 2.25 K/uL 1.0-7.0 Lymph # 1.71 K/uL Low 1.8-7.0 [place] # 0.33 K/uL 0.3-0.9 Eos # 0.34 K/uL 0.0-0.5 Baso # 0.02 K/uL 0.0-0.1 Comprehensive Metabolic Panel 10/09/2015 Glucose 109 mg/dL High 74-106 BUN 15 mg/dL 7-18 Creatinine 0.9 mg/dL 0.6-1.3 Glom Filtration Rate, Estimate >60 mL/min >60 If >60 mL/min >60 29 BUN/Creat 16.6 ratio Sodium 142 mmol/L 136-145 Potassium 4.0 mmol/L 3.5-5.1 Chloride 110 mmol/L High 98-107 Carbon Dioxide 25 mmol/L 21-32 Anion Gap 7 mEq/L Low 8-16 Calcium 8.3 mg/dL Low 8.5-10.1 Total Protein 6.8 g/dL 6.4-8.2 Albumin 3.4 g/dL 3.4-5.0 Globulin 3.4 g/dL 1.9-4.3 Alb/Glob 1.0 ratio Bilirubin,Total 0.6 mg/dL 0.2-1.0 Sgot/Ast 30 U/L 15-37 SGPT/Alt 48 U/L 12-78 Alkaline Phosphatase 66 U/L 45-117 General Health Panel 10/09/2015 Thyroid Stim Hormone 2.84 uIU/mL 0.36- 3.74 Free T4 1.12 ng/dL 0.76-1.46 Laboratory test finding 05/16/2015 Thyroid Stim Hormone 2.38 uIU/mL 0.36- 3.74 Free T4 1.19 ng/dL 0.76-1.46 Comprehensive Metabolic Panel 02/07/2015 Glucose 108 mg/dL High 74-106 BUN 12 mg/dL 7-18 Creatinine 1.0 mg/dL 0.6-1.3 Glom Filtration Rate, Estimate >60 mL/min >60 If >60 mL/min >60 30 BUN/Creat 12.0 ratio Sodium 142 mmol/L 136-145 Potassium 3.9 mmol/L 3.5-5.1 Chloride 109 mmol/L High 98-107 Carbon Dioxide 26 mmol/L 21-32 Anion Gap 7 mEq/L Low 8-16 Calcium 8.1 mg/dL Low 8.5-10.1 Total Protein 7.0 g/dL 6.4-8.2 Albumin 3.7 g/dL 3.4-5.0 Globulin 3.3 g/dL 1.9-4.3 Alb/Glob 1.1 ratio Bilirubin,Total 0.4 mg/dL 0.2-1.0 Sgot/Ast 26 U/L 15-37 SGPT/Alt 37 U/L 12-78 Alkaline Phosphatase 78 U/L 45-117 CBS W/Automated Diff 02/07/2015 White Blood Count 6.6 K/uL 3.1-10.7 Red Blood Count 4.41 M/uL 3.90-5.40 Hemoglobin 13.6 gm/dL 11.6-15.8 Hematocrit 39.9 % 36.0-46.1 Mean Cell Volume 90.5 fl 80.9-99.0 Mean Corpuscular HGB 30.8 pg 25.9-32.7 Mean Corpuscular HGB Conc 34.1 g/dL 30.8-34.3 Platelet Count 233 K/uL 155-360 Red Cell Distri Width SD 46.2 fl 3-47 Red Cell Distri Width %CV 14.3 % 11.7-14.4 Mean Platelet Volume 10.8 fL 8.9-12.4 Neut% 52.0 % 40.4-72.8 Lymph % 30.8 % 17.0-46.1 [place] % 7.4 % 4.3-13.2 Eo% 9.2 % High 0.0-6.6 Bas% 0.6 % 0.0-1.1 Neut# 3.43 K/uL 1.0-7.0 Lymph # 2.03 K/uL 1.8-7.0 [place] # 0.49 K/uL 0.3-0.9 Eos # 0.61 K/uL High 0.0-0.5 Baso # 0.04 K/uL 0.0-0.1 TSH+Free T4 ([place] & 02/07/2015 Thyroid Stim Hormone 5.26 uIU/mL High 0.36-3.74 [facility]) Free T4 1.11 ng/dL 0.76-1.46 LDL Cholesterol Profile 02/07/2015 Cholesterol 148 mg/dL < 200 31 Triglycerides 87 mg/dL < 150 32 HDL Cholesterol 39 mg/dL > 40 33 LDL-Cholesterol 92 mg/dL < 100 34 Glycohemoglobin A1c 02/07/2015 Glycohemoglobin (A1c) 6.1 % 4.2-6.3 35 eAG 128 mg/dL Laboratory test finding 09/30/2014 Bilirubin,Direct < 0.1 mg/dL 0.0-0.2 Thyroid Stim Hormone 2.18 uIU/mL 0.36-3.74 Free T4 1.16 ng/dL 0.76-1.46 Comprehensive Metabolic Panel 09/30/2014 Glucose 112 mg/dL High 74-106 BUN 19 mg/dL High 7-18 Creatinine 1.2 mg/dL 0.6-1.3 Glom Filtration Rate, Estimate 50 mL/min >60 If 60 mL/min >60 36 BUN/Creat 15.8 ratio Sodium 140 mmol/L 136-145 Potassium 4.0 mmol/L 3.5-5.1 Chloride 109 mmol/L High 98-107 Carbon Dioxide 27 mmol/L 21-32 Anion Gap 8 mEq/L 8-16 Calcium 8.7 mg/dL 8.5-10.1 Total Protein 7.2 g/dL 6.4-8.2 Albumin 3.8 g/dL 3.4-5.0 Globulin 3.4 g/dL 1.9-4.3 Alb/Glob 1.1 ratio Bilirubin,Total 0.3 mg/dL 0.2-1.0 Sgot/Ast 22 U/L 15-37 SGPT/Alt 34 U/L 12-78 Alkaline Phosphatase 78 U/L 45-117 LDL Cholesterol Profile 09/30/2014 Cholesterol 163 mg/dL < 200 37 Triglycerides 96 mg/dL < 150 38 HDL Cholesterol 42 mg/dL > 40 39 LDL-Cholesterol 102 mg/dL < 100 40 CBC W/ Diff & PLT 09/30/2014 White Blood Count 6.3 K/uL 3.1-10.7 Red Blood Count 4.79 M/uL 3.90-5.40 Hemoglobin 14.3 gm/dL 11.6-15.8 Hematocrit 41.8 % 36.0-46.1 Mean Cell Volume 87.3 fl 80.9-99.0 Mean Corpuscular HGB 29.9 pg 25.9-32.7 Mean Corpuscular HGB Conc 34.2 g/dL 30.8-34.3 Platelet Count 199 K/uL 155-360 Red Cell Distri Width SD 40.3 fl 3-47 Red Cell Distri Width %CV 13.0 % 11.7-14.4 Mean Platelet Volume 10.2 fL 8.9-12.4 Neut% 47.5 % 40.4-72.8 Lymph % 35.7 % 17.0-46.1 [place] % 8.6 % 4.3-13.2 Eo% 7.4 % High 0.0-6.6 Bas% 0.8 % 0.0-1.1 Neut# 3.00 K/uL 1.0-7.0 Lymph # 2.25 K/uL 0.8-3.4 [place] # 0.54 K/uL 0.3-0.9 Eos # 0.47 K/uL 0.0-0.5 Baso # 0.05 K/uL 0.0-0.1 CBC W/ Diff & PLT 04/06/2014 White Blood Count 7.3 K/uL 3.1-10.7 Red Blood Count 4.62 M/uL 3.90-5.40 Hemoglobin 14.1 gm/dL 11.6-15.8 Hematocrit 39.9 % 36.0-46.1 Mean Cell Volume 86.4 fl 80.9-99.0 Mean Corpuscular HGB 30.5 pg 25.9-32.7 Mean Corpuscular HGB Conc 35.3 g/dL High 30.8-34.3 Platelet Count 257 K/uL 155-360 Red Cell Distri Width SD 38.7 fl 3-47 Red Cell Distri Width %CV 12.5 % 11.7-14.4 Mean Platelet Volume 10.1 fL 8.9-12.4 Neut% 53.1 % 40.4-72.8 Lymph % 33.4 % 17.0-46.1 [place] % 7.8 % 4.3-13.2 Eo% 5.2 % 0.0-6.6 Bas% 0.5 % 0.0-1.1 Neut# 3.87 K/uL 1.0-7.0 Lymph # 2.44 K/uL 0.8-3.4 [place] # 0.57 K/uL 0.3-0.9 Eos # 0.38 K/uL 0.0-0.5 Baso # 0.04 K/uL 0.0-0.1 LDL Cholesterol Profile 04/06/2014 Cholesterol 160 mg/dL 120-200 Triglycerides 126 mg/dL 16-231 HDL Cholesterol 38 mg/dL 29-83 LDL-Cholesterol 97 mg/dL 62-185 Laboratory test finding 04/06/2014 CK 178 U/L 26-190 Laboratory test finding 04/06/2014 Vitamin D,25-Hydroxy 24.3 ng/mL Low 30.0-100.0 41 Liver Function Tests 04/06/2014 Total Protein 7.2 g/dL 6.3-8.0 Albumin 3.7 g/dL 3.5-5.0 Globulin 3.5 g/dL 1.9-4.3 Alb/Glob 1.1 ratio Bilirubin,Total 0.5 mg/dL 0.2-1.2 Bilirubin,Direct 0.1 mg/dL 0.1-0.4 Bilirubin,Indirect 0.4 mg/dL 0.0-0.9 Sgot/Ast 20 U/L 16-40 SGPT/Alt 39 U/L 30-65 Alkaline Phosphatase 69 U/L 50-136 Comprehensive Metabolic Panel 04/06/2014 Glucose 96 mg/dL 76-115 BUN 15 mg/dL 5-23 Creatinine 1.0 mg/dL 0.5-1.4 Glom Filtration Rate, Estimate >60 mL/min >60 If >60 mL/min >60 42 BUN/Creat 15.0 ratio Sodium 141 mmol/L 136-145 Potassium 3.9 mmol/L 3.5-5.1 Chloride 108 mmol/L High 98-107 Carbon Dioxide 28 mEq/L 18-29 Anion Gap 9 mEq/L 8-16 Calcium 9.1 mg/dL 8.5-10.1 Total Protein 7.2 g/dL 6.3-8.0 Albumin 3.7 g/dL 3.5-5.0 Globulin 3.5 g/dL 1.9-4.3 Alb/Glob 1.1 ratio Bilirubin,Total 0.5 mg/dL 0.2-1.2 Sgot/Ast 20 U/L 16-40 SGPT/Alt 39 U/L 30-65 Alkaline Phosphatase 69 U/L 50-136 Laboratory test finding 04/06/2014 Thyroid Stim Hormone 2.62 uIU/mL 0.49- 4.67 Free T4 1.45 ng/dL 0.71-1.85 Laboratory test finding 03/17/2014 Insulin 17.1 uIU/mL 2.6-24.9 43 Basic Metabolic Panel 03/17/2014 Glucose 117 mg/dL High 76-115 BUN 13 mg/dL 5-23 Creatinine 0.9 mg/dL 0.5-1.4 Glom Filtration Rate, Estimate >60 mL/min >60 If >60 mL/min >60 44 BUN/Creat 14.4 ratio Sodium 141 mmol/L 136-145 Potassium 4.0 mmol/L 3.5-5.1 Chloride 110 mmol/L High 98-107 Carbon Dioxide 25 mEq/L 18-29 Anion Gap 10 mEq/L 8-16 Calcium 8.5 mg/dL 8.5-10.1 Glycohemoglobin A1c 03/17/2014 Glycohemoglobin (A1c) 5.4 % 4.8-6.0 45 eAG 108 mg/dL Dna Probe N. Gono + C. 06/04/2012 Dna Probe For Chlamydia Trac. See Note 46 Trach. Dna Probe For N. Gonorrhoeae See Note 47 Laboratory test finding 06/04/2012 Trichomonas Direct Exam See Note 48 Laboratory test finding 06/04/2012 Urine HCG (Qualitative) NEGATIVE Negative 49 Urinalysis With 06/04/2012 Urine Color YELLOW Yellow Microscopic Urine Clarity SL CLOUDY Clear Urine Glucose - Dipstick NEGATIVE mg/dL Negative Urine Bilirubin - Dipstick NEGATIVE Negative Urine Ketone NEGATIVE mg/dL Negative Urine Specific [place] >=1.030 1.010-1.030 Urine Blood MODERATE High Negative Urine PH 5.5 Low 6.5-7.5 Urine Protein - Dipstick 100 mg/dL High Negative Urine Urobilinogen - Dipstick 1.0 E.U./dL 0.2-1.0 Urine Nitrite - Dipstick NEGATIVE Negative Urine Leuk Esterase SMALL High Negative Urine RBC 0-2 rbc/hpf 0-7 Urine WBC 7-10 wbc/hpf High 0-7 Urine Epithelial Cells FEW NONESEEN Urine Bacteria FEW NONESEEN Urine Amorph Sediment SMALL Negative Laboratory test finding 06/04/2012 Urine Screen See Note 50 Laboratory test finding 05/01/2012 Polyp Colon And/Or See Note 51 Rectum Laboratory test finding 02/28/2012 HIV Self Referred Nonreactive Nonreactive 52 TSH+Free T4 ([place] & 12/26/2011 Thyroid Stim Hormone 3.68 uIU/mL 0.49- 4.67 [facility]) Free T4 0.98 ng/dL 0.71-1.85 CBC W/Automated Diff 12/26/2011 White Blood Count 6.5 K/uL 3.1-10.7 Red Blood Count 4.81 M/uL 3.90-5.40 Hemoglobin 14.1 gm/dL 11.6-15.8 Hematocrit 41.2 % 36.0-46.1 Mean Cell Volume 85.7 fl 80.9-99.0 Mean Corpuscular HGB 29.3 pg 25.9-32.7 Mean Corpuscular HGB Conc 34.2 g/dL 30.8-34.3 Platelet Count 194 K/uL 155-360 Red Cell Distri Width SD 39.0 fl 3-47 Red Cell Distri Width %CV 12.9 % 11.7-14.4 Mean Platelet Volume 10.0 fL 8.9-12.4 Neut% 55.4 % 40.4-72.8 Lymph % 27.1 % 17.0-46.1 [place] % 7.4 % 4.3-13.2 Eo% 9.6 % High 0.0-6.6 Bas% 0.5 % 0.0-1.1 Neut# 3.62 K/uL 1.0-7.0 Lymph # 1.77 K/uL 0.8-3.4 [place] # 0.48 K/uL 0.3-0.9 Eos # 0.63 K/uL High 0.0-0.5 Baso # 0.03 K/uL 0.0-0.1 Comprehensive Metabolic Panel 12/26/2011 Glucose 122 mg/dL High 76-115 BUN 16 mg/dL 5-23 Creatinine 1.1 mg/dL 0.5-1.4 Glom Filtration Rate, Estimate 56 mL/min >60 If >60 mL/min >60 53 BUN/Creat 14.5 ratio Sodium 142 mmol/L 136-145 Potassium 3.7 mmol/L 3.5-5.1 Chloride 109 mmol/L High 98-107 Carbon Dioxide 25 mEq/L 18-29 Anion Gap 12 mEq/L 8-16 Calcium 8.6 mg/dL 8.5-10.1 Total Protein 6.6 g/dL 6.3-8.0 Albumin 3.6 g/dL 3.5-5.0 Globulin 3.0 g/dL 1.9-4.3 Alb/Glob 1.2 ratio Bilirubin,Total 0.5 mg/dL 0.2-1.2 Sgot/Ast 17 U/L 16-40 SGPT/Alt 27 U/L Low 30-65 Alkaline Phosphatase 57 U/L 50-136 Laboratory test finding 01/23/2010 Glycohemoglobin A1c 5.6 % 4.8-6.0 54 Vitamin D,25-Hydroxy 15.7 ng/mL Low 32.0-100.0 55 Vitamin D,1,25 Dihydroxy 56.1 pg/mL 10.0-75.0 Estimated GFR 01/23/2010 Creatinine 1.0 mg/dL 0.5-1.4 Glom Filtration Rate, Estimate >60 mL/min >60 If >60 mL/min >60 56 Basic Metabolic Panel 01/23/2010 Glucose 125 mg/dL High 76-115 BUN 14 mg/dL 5-23 Creatinine 1.0 mg/dL 0.5-1.4 Glom Filtration Rate, Estimate >60 mL/min >60 If >60 mL/min >60 57 BUN/Creat 14.0 Sodium 141 mEq/L 136-145 Potassium 3.6 mEq/L 3.5-5.1 Chloride 108 mEq/L High 98-107 Carbon Dioxide 24 mEq/L 21-32 Anion Gap 13 mEq/L 8-16 Calcium 8.4 mg/dL Low 8.5-10.1 Basic Metabolic Panel 10/24/2009 Glucose 114 mg/dL 76-115 BUN 15 mg/dL 5-23 Creatinine 1.0 mg/dL 0.5-1.4 Glom Filtration Rate, Estimate >60 mL/min >60 If >60 mL/min >60 58 BUN/Creat 15.0 Sodium 140 mEq/L 136-145 Potassium 3.8 mEq/L 3.5-5.1 Chloride 104 mEq/L 98-107 Carbon Dioxide 27 mEq/L 21-32 Anion Gap 13 mEq/L 8-16 Calcium 8.6 mg/dL 8.5-10.1 LDL Cholesterol Profile 10/24/2009 Cholesterol 156 mg/dL 120-200 Triglycerides 140 mg/dL 0-210 HDL Cholesterol 40 mg/dL 32-96 LDL-Cholesterol 88 mg/dL 62-185 Comprehensive Metabolic Panel 07/26/2009 Glucose 103 mg/dL 76-115 BUN 17 mg/dL 5-23 Creatinine 1.1 mg/dL 0.5-1.4 Glom Filtration Rate, Estimate 56 mL/min >60 If >60 mL/min >60 59 BUN/Creat 15.4 Sodium 140 mEq/L 136-145 Potassium 3.8 mEq/L 3.5-5.1 Chloride 106 mEq/L 98-107 Carbon Dioxide 27 mEq/L 21-32 Anion Gap 11 mEq/L 8-16 Calcium 8.8 mg/dL 8.5-10.1 Total Protein 7.1 g/dL 6.3-8.0 Albumin 3.7 g/dL 3.5-5.0 Globulin 3.4 gm/dL 1.9-4.3 Alb/Glob 1.1 Bilirubin,Total 0.3 mg/dL 0.2-1.2 Sgot/Ast 30 U/L 16-40 SGPT/Alt 52 U/L 30-65 Alkaline Phosphatase 86 U/L 50-136 CBC/Manual Differential 07/26/2009 White Blood Count 7.4 K/uL 3.1-10.7 Red Blood Count 4.77 M/uL 3.90-5.40 Hemoglobin 14.1 gm/dL 11.6-15.8 Hematocrit 41.0 % 36.0-46.1 Mean Cell Volume 86.0 fl 80.9-99.0 Mean Corpuscular HGB 29.6 pg 25.9-32.7 Mean Corpuscular HGB Conc 34.4 g/dL High 30.8-34.3 Platelet Count 204 K/uL 155-360 Red Cell Distri Width %CV 12.2 % 11.7-14.4 Mean Platelet Volume 9.8 fL 8.9-12.4 Total Cells Counted 100 #CELLS Neutrophils% 57 % 33-73 Lymph% 29 % 17-56 Platelet Estimate NORMAL Band% 2 % 0-8 Atypical Lymph% 1 % 0-7 Monocyte% 4 % 0-10 Eosinophil% 6 % High 0-5 Basophil% 1 % 0-2 RBC Morphology NORMAL TSH+Free T4 ([place] & 07/26/2009 Thyroid Stim Hormone 4.42 uIU/mL 0.49- 4.67 [facility]) Free T4 0.79 ng/dL 0.71-1.85 Laboratory test finding 07/26/2009 Cortisol,Am 10.8 g/dL 4.2-38.4 1 E87.6,ZOO.OO,E78.2 2 Note: Persistent reduction for 3 months or more in an eGFR <60 mL/min/1.73 m2 defines CKD. Patients with eGFR values >/=60 mL/min/1.73 m2 may also have CKD if evidence of persistent proteinuria is present. The original MDRD equation for estimated GFR is not valid for patients less than 18 years of age. Additional information may be found at [email or web address]. 3 Machine Group Leader: [id number] Z00.00,E78.2,M15.9 5 Reference Range: All Ages: Target levels 30 - 100 6 Performed at: - [facility] [address] [place] [id number] Salesperson Hosiery: Reza Limon MD, Phone: [phone] 7 Note: Persistent reduction for 3 months or more in an eGFR <60 mL/min/1.73 m2 defines CKD. Patients with eGFR values >/=60 mL/min/1.73 m2 may also have CKD if evidence of persistent proteinuria is present. The original MDRD equation for estimated GFR is not valid for patients less than 18 years of age. Additional information may be found at [email or web address]. 8 Reference Guidelines*: Desirable: ........... < 200 mg/dL Borderline High: ..... 200-239 mg/dL High: ................ >=240 mg/dL * The National Cholesterol Education Program (NCEP) 9 Reference Guidelines*: Normal: ............. < 150 mg/dL Borderline High: .... 150-199 mg/dL High: ............... 200-499 mg/dL Very High: .......... > 500 mg/dL * Source: National Cholesterol Education Program (NCEP) 10 Reference Guidelines*: Low HDL: ..... < 40 mg/dL Normal: ..... 40-60 mg/dL Desirable: ... > 60 mg/dL *The National Cholesterol Education Program(NCEP) 11 Reference Guidelines*: Optimal:........... <100 mg/dL Near Optimal....... 100-129 mg/dL Borderline High.... 130-159 mg/dL High............... 160-189 mg/dL Very High.......... >=190 mg/dL * Source: National Cholesterol Education Program (NCEP) 12 Machine Group Leader: [id number] 13 STAPHYLOCOCCUS SPECIES LIGHT GROWTH 14 STAPHYLOCOCCUS AUREUS Oxacillin susceptible staphylococci are susceptible to other penicillinase-stable penicillins (e.g. Methicillin, Nafcillin), beta lactam/beta lactamase inhibitor combinations, and cephems with Staphylococcal indications, including cefazolin LIGHT GROWTH NEGATIVE FOR INDUCIBLE CLINDAMYCIN RESISTANCE. 15 ( )=MINIMUM INHIBITORY CONCENTRATION IN MCG/ML 16 R73.01 E66.09 E03.9 E78.2 17 Reference Guidelines*: Desirable: ........... < 200 mg/dL Borderline High: ..... 200-239 mg/dL High: ................ >=240 mg/dL * The National Cholesterol Education Program (NCEP) 18 Reference Guidelines*: Normal: ............. < 150 mg/dL Borderline High: .... 150-199 mg/dL High: ............... 200-499 mg/dL Very High: .......... > 500 mg/dL * Source: National Cholesterol Education Program (NCEP) 19 Reference Guidelines*: Low HDL: ..... < 40 mg/dL Normal: ..... 40-60 mg/dL Desirable: ... > 60 mg/dL *The National Cholesterol Education Program(NCEP) 20 Reference Guidelines*: Optimal:........... <100 mg/dL Near Optimal....... 100-129 mg/dL Borderline High.... 130-159 mg/dL High............... 160-189 mg/dL Very High.......... >=190 mg/dL * Source: National Cholesterol Education Program (NCEP) 21 Note: Persistent reduction for 3 months or more in an eGFR <60 mL/min/1.73 m2 defines CKD. Patients with eGFR values >/=60 mL/min/1.73 m2 may also have CKD if evidence of persistent proteinuria is present. The original MDRD equation for estimated GFR is not valid for patients less than 18 years of age. Additional information may be found at www.[email or web address]. 22 Note: Persistent reduction for 3 months or more in an eGFR <60 mL/min/1.73 m2 defines CKD. Patients with eGFR values >/=60 mL/min/1.73 m2 may also have CKD if evidence of persistent proteinuria is present. The original MDRD equation for estimated GFR is not valid for patients less than 18 years of age. Additional information may be found at [email or web address]. 23 Elevated levels of HbA1c suggest the need for more aggressive treatment of glycemia. The [place] [employer] recommends that a primary goal of therapy should be a HbA1c of <7% and that physicians should re-evaluate the treatment regimen in patients with HbA1c values consistently >8%. 24 Machine Group Leader: [id number] AMELIA FARMER 25 Reference Guidelines*: Desirable: ........... < 200 mg/dL Borderline High: ..... 200-239 mg/dL High: ................ >=240 mg/dL * The National Cholesterol Education Program (NCEP) 26 Reference Guidelines*: Normal: ............. < 150 mg/dL Borderline High: .... 150-199 mg/dL High: ............... 200-499 mg/dL Very High: .......... > 500 mg/dL * Source: National Cholesterol Education Program (NCEP) 27 Reference Guidelines*: Low HDL: ..... < 40 mg/dL Normal: ..... 40-60 mg/dL Desirable: ... > 60 mg/dL *The National Cholesterol Education Program(NCEP) 28 Reference Guidelines*: Optimal:........... <100 mg/dL Near Optimal....... 100-129 mg/dL Borderline High.... 130-159 mg/dL High............... 160-189 mg/dL Very High.......... >=190 mg/dL * Source: National Cholesterol Education Program (NCEP) 29 Note: Persistent reduction for 3 months or more in an eGFR <60 mL/min/1.73 m2 defines CKD. Patients with eGFR values >/=60 mL/min/1.73 m2 may also have CKD if evidence of persistent proteinuria is present. The original MDRD equation for estimated GFR is not valid for patients less than 18 years of age. Additional information may be found at [email or web address]. 30 Note: Persistent reduction for 3 months or more in an eGFR <60 mL/min/1.73 m2 defines CKD. Patients with eGFR values >/=60 mL/min/1.73 m2 may also have CKD if evidence of persistent proteinuria is present. The original MDRD equation for estimated GFR is not valid for patients less than 18 years of age. Additional information may be found at [email or web address]. 31 Reference Guidelines*: Desirable: ........... < 200 mg/dL Borderline High: ..... 200-239 mg/dL High: ................ >=240 mg/dL * The National Cholesterol Education Program (NCEP) 32 Reference Guidelines*: Normal: ............. < 150 mg/dL Borderline High: .... 150-199 mg/dL High: ............... 200-499 mg/dL Very High: .......... > 500 mg/dL * Source: National Cholesterol Education Program (NCEP) 33 Reference Guidelines*: Low HDL: ..... < 40 mg/dL Normal: ..... 40-60 mg/dL Desirable: ... > 60 mg/dL *The National Cholesterol Education Program(NCEP) 34 Reference Guidelines*: Optimal:........... <100 mg/dL Near Optimal....... 100-129 mg/dL Borderline High.... 130-159 mg/dL High............... 160-189 mg/dL Very High.......... >=190 mg/dL * Source: National Cholesterol Education Program (NCEP) 35 Elevated levels of HbA1c suggest the need for more aggressive treatment of glycemia. The [place] Diabetes [employer] recommends that a primary goal of therapy should be a HbA1c of <7% and that physicians should re-evaluate the treatment regimen in patients with HbA1c values consistently >8%. 36 Note: Persistent reduction for 3 months or more in an eGFR <60 mL/min/1.73 m2 defines CKD. Patients with eGFR values >/=60 mL/min/1.73 m2 may also have CKD if evidence of persistent proteinuria is present. The original MDRD equation for estimated GFR is not valid for patients less than 18 years of age. Additional information may be found at www.[email or web address]. 37 Reference Guidelines*: Desirable: ........... < 200 mg/dL Borderline High: ..... 200-239 mg/dL High: ................ >=240 mg/dL * The National Cholesterol Education Program (NCEP) 38 Reference Guidelines*: Normal: ............. < 150 mg/dL Borderline High: .... 150-199 mg/dL High: ............... 200-499 mg/dL Very High: .......... > 500 mg/dL * Source: National Cholesterol Education Program (NCEP) 39 Reference Guidelines*: Low HDL: ..... < 40 mg/dL Normal: ..... 40-60 mg/dL Desirable: ... > 60 mg/dL *The National Cholesterol Education Program(NCEP) 40 Reference Guidelines*: Optimal:........... <100 mg/dL Near Optimal....... 100-129 mg/dL Borderline High.... 130-159 mg/dL High............... 160-189 mg/dL Very High.......... >=190 mg/dL * Source: National Cholesterol Education Program (NCEP) 41 Vitamin D deficiency has been defined by the [place] [employer] and an Endocrine Society practice guideline as a level of serum 25-OH vitamin D less than 20 ng/mL (1,2). The Endocrine Society went on to further define vitamin D insufficiency as a level between 21 and 29 ng/mL (2). 1. IOM ([place] [employer]). 2010. Dietary reference intakes for calcium and D. [place]: The National Academies Press. 2. Alex MF, Rony NC, Jorje PETERSEN, et al. Evaluation, treatment, and prevention of vitamin D deficiency: an Endocrine Society clinical practice guideline. JCEM. 2010; 96(7):1911-30. Performed at: RN - [facility] [address] [id number] Salesperson Hosiery: Carrie Cruz MD, Phone: [phone] 42 Note: Persistent reduction for 3 months or more in an eGFR <60 mL/min/1.73 m2 defines CKD. Patients with eGFR values >/=60 mL/min/1.73 m2 may also have CKD if evidence of persistent proteinuria is present. The original MDRD equation for estimated GFR is not valid for patients less than 18 years of age. Additional information may be found at www.[email or web address]. 43 Performed at: RN - [facility] [address] [id number] Salesperson Hosiery: Carrie Cruz MD, Phone: [phone] 44 Note: Persistent reduction for 3 months or more in an eGFR <60 mL/min/1.73 m2 defines CKD. Patients with eGFR values >/=60 mL/min/1.73 m2 may also have CKD if evidence of persistent proteinuria is present. The original MDRD equation for estimated GFR is not valid for patients less than 18 years of age. Additional information may be found at www.[email or web address]. 45 A1c value between 5.7% and 6.4% is considered at increased risk for diabetes. A1c value greater than 6.5 % is considered essentially diagnostic for Type II diabetes. Current guidelines recommend a treatment goal of <7% for diabetic patients. This method will measure glycosylated hemoglobin variants, HbS, HbG, HbH, HbWayne, HbC, HbE, etc. Other hemoglobin- opathies may give incorrect results with this test. 46 NEGATIVE FOR CHLAMYDIA TRACHOMATIS BY DNA HYBRIDIZATION ASSAY. THIS TEST IS APPROVED FOR OCULAR AND UROGENITAL SITES ONLY. 47 NEGATIVE FOR NEISSERIA GONORRHOEAE BY DNA HYBRIDIZATION ASSAY. THIS METHOD IS APPROVED FOR UROGENITAL SITES ONLY. 48 Clue cells seen, No Trichomonas or yeast seen. This is a presumptive result. Specimens received more than 30 minutes after collection may yield false negative results. Identification of Trichomonas is made by the observation of motility, which becomes progressively diminished after 30 minutes. 49 FIRST MORNING SPECIMENS GENERALLY CONTAIN THE HIGHEST CONCENTRATION OF HCG AND ARE RECOMMENDED FOR EARLY DETECTION OF . 50 06/04/12 LAB.CBL Deleted by Reflex [place] [facility] [place] OPERATION/PROCEDURE Colonoscopy DIAGNOSIS: PART 1: "TRANSVERSE COLON POLYPECTOMY": HYPERPLASTIC POLYP. PART 2: "SIGMOID AND RECTAL POLYPECTOMY": HYPERPLASTIC POLYP(S) AND TUBULAR ADENOMATOUS POLYP. WYS/clf GROSS Part 1; "TRANSVERSE COLON POLYP". The specimen is received in an appropriately labeled container. This contains one rounded hill colored piece of soft tissue measuring up to 0.2 cm.; filtered and submitted in toto within a single cassette. Part 2; "SIGMOID AND RECTAL POLYPS". The specimen is received in an appropriately labeled container. This contains three rounded hill colored pieces of soft tissue measuring up to 0.2 cm.; filtered and submitted in toto within a single cassette. WS/clf MICROSCOPIC Part 1: Sections show colonic mucosa lined by an increased number of goblet cells. The glands have a serrated, saw tooth appearance. The nuclei are bland, and basal. Part 2: Sections show polypoid fragmented colonic mucosa with hyperplastic glands and hyperchromatic, oval nuclei within cells lining tubular glands. PRE OPERATIVE DIAGNOSIS Screening colon REVIEW CODE CODE: I DAIJA Mederos MD 05/04/12 1329 52 It is recognized that currently available assays for the detection of antibodies to HIV-1 and/or HIV-2 may not detect all infected individuals. HIV antibodies may be undetectable in some stages of the infection and in some clinical conditions. The performance of this assay has not been established for populations of infants or children. Assayed by Chemiluminescence Microparticle Immunoassay on the [employer] Adv[employer] Centaur CP. Values obtained with different methods or kits cannot be used interchangeably.The diagnostic specificity of the ADVIA Centaur 1/O/2 Enhanced assay in the low risk population was 99.90% (6052/6058) with a 95% confidence interval of 99.78 to 99.96%. 53 Note: Persistent reduction for 3 months or more in an eGFR <60 mL/min/1.73 m2 defines CKD. Patients with eGFR values >/=60 mL/min/1.73 m2 may also have CKD if evidence of persistent proteinuria is present. The original MDRD equation for estimated GFR is not valid for patients less than 18 years of age. Additional information may be found at [email or web address]. 54 Current guidelines recommend a treatment goal of <7% for diabetic patients. This method will measure glycosylated hemoglobin variants, HbS, HbG, HbH, HbWayne, HbC, HbE, etc. Other hemoglobin- opathies may give incorrect results with this test. Note change in expected values for healthy individuals 55 Recent studies consider the lower limit of 32.0 ng/mL to be a threshold for optimal health. Sav PERKINS. J Nutr. 2005 Dec;135(2):317-22. 56 Note: Persistent reduction for 3 months or more in an eGFR <60 mL/min/1.73 m2 defines CKD. Patients with eGFR values >/=60 mL/min/1.73 m2 may also have CKD if evidence of persistent proteinuria is present. The original MDRD equation for estimated GFR is not valid for patients less than 18 years of age. Additional information may be found at www.[email or web address]. 57 Note: Persistent reduction for 3 months or more in an eGFR <60 mL/min/1.73 m2 defines CKD. Patients with eGFR values >/=60 mL/min/1.73 m2 may also have CKD if evidence of persistent proteinuria is present. The original MDRD equation for estimated GFR is not valid for patients less than 18 years of age. Additional information may be found at www.[email or web address]. 58 Note: Persistent reduction for 3 months or more in an eGFR <60 mL/min/1.73 m2 defines CKD. Patients with eGFR values >/=60 mL/min/1.73 m2 may also have CKD if evidence of persistent proteinuria is present. The original MDRD equation for estimated GFR is not valid for patients less than 18 years of age. Additional information may be found at www.[email or web address]. 59 Note: Persistent reduction for 3 months or more in an eGFR <60 mL/min/1.73 m2 defines CKD. Patients with eGFR values >/=60 mL/min/1.73 m2 may also have CKD if evidence of persistent proteinuria is present. The original MDRD equation for estimated GFR is not valid for patients less than 18 years of age. Additional information may be found at [email or web address]. Procedures Date CPT Code Description Status 06/22/2018 77797 EKG-Tracing & Report Completed 01/26/2018 35240 PFT Evaluation Completed 11/27/2017 43302 Bone Density Completed 10/21/2017 69499 EKG-Tracing & Report Completed 10/03/2016 67168 Spirometry Graphic Record/Max Voluntary Vent Completed 10/03/2016 80199 EKG-Tracing & Report Completed 02/16/2015 Bone Mineral Density Test Completed 02/16/2015 92431 Bone Density Completed 09/30/2014 20355 Spirometry Graphic Record/Max Voluntary Vent Completed 09/30/2014 54475 EKG-Tracing & Report Completed 04/06/2014 28254 EKG-Tracing & Report Completed 03/10/2014 Mammogram Completed 05/01/2012 Colonoscopy Completed 01/01/2012 69034 Spirometry Graphic Record/Max Voluntary Vent Completed 01/01/2012 37301 EKG-Tracing & Report Completed 10/24/2009 34948 PFT Evaluation Completed 07/25/2009 04994 ECHO-2D W/Wo M-Mode Completed Encounters Type Date Location Provider CPT E/M Office Visit 07/09/2018 2:45p [place] [address] Office Visit 03/02/2018 3:00p [place] [address] Office Visit 01/26/2018 2:50p [place] [address] Office Visit 01/09/2018 8:15a [place] [address] Office Visit 10/28/2017 3:30p [place] [address] Office Visit 05/27/2017 4:30p [place] [address] Office Visit 12/27/2016 3:15p [place] [address] Office Visit 10/31/2016 11:30a [place] [address] Office Visit 04/16/2016 11:45a [place] [address] Office Visit 10/16/2015 10:30a [place] [address] Office Visit 05/18/2015 11:30a [place] [address] Office Visit 10/07/2014 3:00p Main Office [place] Ring[place] [address] Office Visit 09/23/2014 2:45p [place] [address] Office Visit 09/06/2014 3:45p [place] [address] Office Visit 04/05/2014 10:30a [place] [address] Office Visit 01/01/2012 11:00a Main [place] [address] Office Visit 12/25/2011 12:00p Main [place] [address] Office Visit 02/22/2010 3:15p Main Office [place] [address] Office Visit 10/31/2009 11:30a [place] [address] Office Visit 10/03/2009 3:15p [place] [address] Office Visit 08/01/2009 11:00a [place] [address] Office Visit 07/20/2009 2:30p Main Office Elyn RingMD [address]
[2018-07-20 14:55] VITALS: BP 152/95
--- NOTE | 2018-07-20 15:05 | UC ---
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 As a result the hip occasionally catches and gives out. This morning, she had a catch in the hip while walking down her 3 steps. This caused her to rule her right ankle read she is complaining of pain to the inside of her right ankle and the outer top of her right foot. She states that she is scheduled for hip surgery later this month and wants to ensure that her ankle and foot are okay. She denies any other injuries offers no other complaints. - History of Current Complaint Chief Complaint: UCLowerExtremity Stated Complaint: S/P FALL RIGHT ANKLE Time Seen by Provider: 07/20/18 14:45 Hx Obtained From: Patient Hx Last Menstrual Period: Seven months ago Onset/Duration: Sudden Onset Pain Intensity: 6 Alleviating Factor(s): Rest Able to Bear Weight: Yes - Allergies/Home Medications Allergies/Adverse Reactions: Allergies Allergy/AdvReac Type Severity Reaction Status Date / Time cephalexin [From Keflex] Allergy Rash Verified 07/20/18 14:55 egg Allergy Shortness Verified 07/20/18 14:55 of Breath erythromycin base Allergy Hives Verified 07/20/18 14:55 soy Allergy Shortness Verified 07/20/18 14:55 of Breath PMH/Surg Hx/FS Hx/Imm Hx - Additional Past Medical History Additional PMH: psoratic arthritis, chronic back pain, stress incontinence - Surgical History Surgical History: Yes Surgery Procedure, Year, and Place: L lumpectomy - 2007. cervical cancer - Family History Known Family History: Positive: Hypertension, Diabetes, Other - RA - Social History Occupation: Employed Full-time Lives: With Family Alcohol Use: None Substance Use Type: None Smoking Status (MU): Never Smoked Tobacco - Immunization History Most Recent Influenza Vaccination: none Vaccination Up to Date: Yes Review of Systems Constitutional: Negative Skin: Negative Eyes: Negative ENT: Negative Respiratory: Negative Cardiovascular: Negative Gastrointestinal: Negative Genitourinary: Negative Motor: Negative Neurovascular: Negative Musculoskeletal: Other: - Chronic L hip pain. Acute R inner ankle and foot pain Neurological: Negative Psychological: Negative Is Patient Immunocompromised?: No All Other Systems Reviewed And Are Negative: Yes Physical Exam Triage Information Reviewed: Yes Appearance: Well-Appearing Vital Signs: Initial Vital Signs Temp 98.2 F 07/20/18 14:47 Pulse 76 07/20/18 14:47 Resp 18 07/20/18 14:47 BP 152/95 07/20/18 14:47 Pulse Ox 98 07/20/18 14:47 Vital Signs Reviewed: Yes Eyes: Positive: Conjunctiva Clear ENT: Positive: Normal ENT inspection Neck: Positive: Supple, Nontender Respiratory: Positive: Lungs clear, Normal breath sounds Cardiovascular: Positive: RRR, No Murmur Abdomen Description: Positive: Nontender, No Organomegaly, Soft Bowel Sounds: Positive: Present Musculoskeletal: Positive: Other: - RLE: Hip and knee are atraumatic. Achilles tendon is nontender and intact. Ankle is without gross deformity or discoloration but is tender to palpation over the medial aspect. There are some of the foot and rest the foot is without gross deformity swelling or discoloration but patient notes tenderness with palpation to the mid lateral foot. Foot has gross sensorivascular motor function. Neurological: Positive: Alert Psychological: Positive: Age Appropriate Behavior Skin Exam: Normal Diagnostics - Radiology No standard instances Radiology Interpretation Completed By: Radiologist - R ankle sts no fx. R foot no fx. Lower Extremity Course/Dx - Course Course Of Treatment: no fx or dislocation. will michell and gel splint. - Differential Dx/Diagnosis Provider Diagnoses: Sprain R ankle and R foot. Discharge - Sign-Out/Discharge Documenting (check all that apply): Patient Departure All imaging exams completed and their final reports reviewed: Yes - Discharge Plan Condition: Stable Disposition: HOME Patient Education Materials: Ankle Sprain (ED), Foot Sprain (ED) Referrals: Davi Donovan MD [Primary Care Provider] - 5 Days - Billing Disposition and Condition Condition: STABLE Disposition: Home
--- NOTE | 2018-07-20 15:29 | RAD ---
Indication: Right ankle pain. 3 views of the right ankle demonstrate soft tissue swelling. Ankle mortise is intact. Inferior calcaneal spur is noted. IMPRESSION: Soft tissue swelling without fracture.
--- NOTE | 2018-07-20 15:29 | RAD ---
Indication: Right foot pain 3 views of the right foot demonstrates no fracture. No other bone or joint abnormality is identified. IMPRESSION: No fracture of the right foot is noted.
== END 2018-07-20 15:42 | disposition home or self-care (01) ==
LOC: UCCORT 14:38
DX: S93.401A Sprain of unspecified ligament of right ankle, initial encounter (principal); S93.601A Unspecified sprain of right foot, initial encounter; Z88.1 Allergy status to other antibiotic agents; Z91.012 Allergy to eggs; Z91.018 Allergy to other foods; W19.XXXA Unspecified fall, initial encounter; Y92.9 Unspecified place or not applicable
CPT/HCPCS: 99213; G0463

== ENCOUNTER 2018-08-04 10:09 | Inpatient (IN) | payer BC ==
--- NOTE | 2018-07-24 14:36 | HP ---
AMENDED REPORT NOW INCLUDES COSIGNER DESIGNATION - ESIGNED BEFORE ADJUSTMENT HISTORY AND PHYSICAL: DATE OF ADMISSION/SURGERY: 08/04/18 DATE OF OFFICE VISIT: 07/24/18 SURGEON: Sandy Neves MD * (DICTATED BY SCOT WILSON) PROCEDURE: Left total hip arthroplasty. CHIEF COMPLAINT: Left hip pain. HISTORY OF PRESENT ILLNESS: Ms. Jaramillo is a 58-year-old female with complaints of left hip pain. She has failed conservative management and elected to proceed with a left total hip arthroplasty. PAST MEDICAL HISTORY: COPD, cervical cancer, glaucoma, and rheumatoid arthritis. PAST SURGICAL HISTORY: Left breast lumpectomy, tonsillectomy, cervix removal, cataract removal, and D and C x3. CURRENT MEDICATIONS: 1. Oxycodone 5 mg twice a day extended release. 2. Morphine sulfate 15 mg twice a day. 3. Methotrexate 2.5 mg 7 tabs once a week. 4. Meloxicam 15 mg daily. 5. Myrbetriq 25 mg daily. 6. Folic acid. 7. Potassium chloride 20 mEq daily. 8. ProAir HFA as needed. 9. Calcium. 10. Magnesium. 11. Zinc. 12. Spiriva. 13. Symbicort. ALLERGIES: To KEFLEX and ERYTHROMYCIN. FAMILY HISTORY: COPD, breast and lung cancer, diabetes, and stroke. SOCIAL HISTORY: She is a 58-year-old female. She lives with her daughter. She does not smoke or use drugs or alcohol. REVIEW OF SYSTEMS: A complete 14-point review of systems was reviewed with the patient. It was positive for COPD. She denies history of DVT, PE, hepatitis, HIV, or anesthesia problems. PHYSICAL EXAMINATION GENERAL: She is well developed, well nourished, in no acute distress. VITAL SIGNS: She stands 60 inches tall, weighs 184 pounds. Her blood pressure 132/71 and her heart rate 72. HEENT: Normocephalic, atraumatic. NECK: Supple. No palpable lymph nodes. PULMONARY: Lungs are clear to auscultation bilaterally. CARDIO: Regular rate and rhythm. Strong S1, S2. ABDOMEN: Soft, nontender, nondistended. NEUROLOGICAL: She is alert and oriented x3. MUSCULOSKELETAL: Left lower extremity: The skin is intact. There are no open wounds or abrasions. She does walk with an antalgic-type gait favoring her left hip. She has decreased internal and external rotation of the left hip. 2 + dorsalis pedis pulse. Intact sensation. Her lower extremity muscle group strengths are intact at 5/5. ASSESSMENT AND PLAN: Ms. Jaramillo is a 58-year-old female with complaints of left hip pain secondary to end-stage osteoarthritis. She has failed conservative treatment and elected to proceed with a left total hip arthroplasty , which is scheduled for 08/04/[address] Neves discussed the risks and benefits of the surgery at today's visit and all of her questions were answered. She will follow up with Dr. Neves 2 weeks after the surgery. SCOT WILSON [id number]/[facility] #: [id number] MTDD
[~2018-08-04 10:09] MED LIST: Buffered Lidocaine 0.9% SYRIN* 5 ML/SYR SYRINGE INTRADERM ONE; Dexamethasone IV* 4 MG/ML 1 ML (4 MG) IV SLOW PU ONE; Famotidine IV* 10 MG/ML 2 ML (20 mg) IV ONE; Gabapentin CAP(*) 300 MG PO ONE; Levalbuterol 0.63MG/3ML NEB* UNIT OF USE INH ONE
--- OUTSIDE RECORDS SUMMARY | 2018-08-04 10:13 | XMS REPORT ---
:1960 External Reference #:[id number] Author Organization [employer] Address [address] [place] [address] Phone [phone] Care Team Providers Name Role Phone Davi Donovan MD Primary Care Physician Unavailable Payers Type Date Identification Numbers Payment Provider Subscriber Commercial Policy Number: [id number] [facility] Marylin Jaramillo Group Number: [id number] [address] PayID: [id number] [place] [address] Problems Date Description Provider Status Onset: 06/12/2018 Localized, primary osteoarthritis of Sandy Neves M.D. Active the pelvic region and thigh Onset: 06/03/2012 Obstructive sleep apnea syndrome Gautam Almaguer M.D. Active Family History Date Family Member(s) Problem(s) Comments General Cancer, Lung General Hypertension General COPD Social History Type Date Description Comments Occupation developmental aide Cigarette Use Never Smoked Cigarettes Cigars Never Smoked Cigars Pipe Never Smoked A Pipe Smokeless Tobacco Never Used Smokeless Tobacco ETOH Use Denies alcohol use Smoking Patient has never smoked Allergies, Adverse Reactions, Alerts Date Description Reaction Status Severity Comments 06/03/2012 Keflex hives active 06/03/2012 Erythromycin rash active Medications Medication Date Status Form Strength Qnty SIG Indications Ordering Provider Oxycodone HCL / Active Capsules 5mg 30caps 1-2 qid Pitts, 0000 prn Dillon, DO Morphine 00/ Active Tablets ER 15mg Unknown Sulfate ER 0000 Oxycodone HCL 00/00/ Active Tablets 5mg Unknown 0000 Methotrexate 00/ Active Tablets 2.5mg Take 7 Unknown 0000 Tablets By Mouth Once A Week Meloxicam / Active Tablets 15mg Unknown 0000 Myrbetriq / Active Tablets ER 25mg Unknown 0000 24HR Folic Acid / Active Tablets 1mg Take 2 Unknown 0000 Tablets By Mouth Daily Potassium / Active Tablets ER 20Meq Ring, Chloride ER 0000 MD Davi Proair HFA / Active Aerosol 108(90Base Take 2 Unknown 0000 ) mcg/Act Puffs By Mouth For 5 Days Then as Needed For Wheeze Calcium / Active Tablets 300-300mg Unknown Magnesium Zinc 0000 Vitamin D3 / Active Capsules 1000Unit 1 by Unknown 0000 mouth every day Spiriva / Active Aerosol 2.5mcg/Act Solitarioeti, Respimat 0000 Maday Jimenez Symbicort / Active Aerosol 160-4.5mcg Kheti, 0000 /Act Maday Jimenez Claritin / Hx Capsules 10mg 1 tablet Ring, 0000 - daily prn MD Davi 2017 Morphine / Hx Caps ER 30mg 16caps 1 po bid Pitts, Sulfate ER 0000 - 24HR Dillon, DO 2017 Albuterol / Hx Aerosol 90mcg/Act 1units 2 puffs Ring, 0000 - po sushmad MD Davi 06/11/ prn 2017 Vital Signs Date Vital Result Comment 07/24/2018 Height 60 inches 5'0" Weight 184.00 lb BP Systolic 132 mmHg BP Diastolic 71 mmHg Respiratory Rate 17 /min Pain Level 7 BMI (Body Mass Index) 35.9 kg/m2 06/12/2018 Height 60 inches 5'0" Weight 181.00 lb Heart Rate 80 /min BP Systolic 138 mmHg BP Diastolic 88 mmHg BMI (Body Mass Index) 35.3 kg/m2 06/03/2012 Weight 192.00 lb Heart Rate 80 /min BP Systolic Sitting 132 mmHg BP Diastolic Sitting 80 mmHg Results Description No Information Procedures Date CPT Code Description Status 09/04/2012 55013 Polysomnography Sleep Staging 4+ Parameters W/Cpap Completed 07/24/2012 04273 Polysomnography Sleep Staging 4+ Parameters Completed Encounters Type Date Location Provider CPT E/M Dx Office Visit 06/12/2018 [facility] Nev[facility] M.D. 79071 M25.552 2:30p [facility] M16.12 Office Visit 08/14/2012 9:45a [facility], [address] 327.23 [facility] AT [facility] Office Visit 06/03/2012 9:30a [facility], [address] 327.23 [facility] AT [facility] Plan of Care Future Appointment(s):08/17/2018 10:30 am - Sandy Neves M.D. at [facility]08/04/2018 1:30 pm - SCOT Lam at [facility]08/04/2018 1:30 pm - SCOT Whitmore at [facility]08/04/2018 1:30 pm - Sandy Neves M.D. at [facility]07/24/2018 - Sandy Neves M.D.M25.552 Pain in left hipFollow up:Follow up: 2 weeks after [id number] Unilateral primary osteoarthritis, left hip
[2018-08-04] MEDS ORDERED: Gabapentin CAP(*) 300 MG ONE (10:21)
[2018-08-04] MEDS ORDERED: Dexamethasone IV* 4 MG/ML 1 ML (4 MG) ONE (10:21)
[2018-08-04] MEDS ORDERED: Famotidine IV* 10 MG/ML 2 ML (20 mg) ONE (10:21)
[2018-08-04] MEDS ORDERED: Clindamycin 900 MG/D5W BAG(*) 900 MG/50 ML BAG IVPB ONE (10:22)
[2018-08-04] MEDS ORDERED: Levalbuterol 0.63MG/3ML NEB* UNIT OF USE INH ONE (10:45)
[2018-08-04] MEDS ORDERED: fentaNYL* 50 MCG/ML 2 ML VIAL (100 MCG VIAL) ONE ×2 (11:53→14:04)
[2018-08-04] MEDS ORDERED: Midazolam* 1 MG/ML 5 ML VIAL (5 MG) ONE (11:53)
[2018-08-04] MEDS ORDERED: Ondansetron INJ* 2 MG/ML VIAL ONE (11:54)
[2018-08-04] MEDS ORDERED: Propofol* 10 MG/ML 20 ML BTL IV PUSH ONE (11:54)
[2018-08-04] MEDS ORDERED: Ropivacaine (OR use only) 2 MG/ML 10 ML ONE (12:48)
[2018-08-04] MEDS ORDERED: ROPIVACAINE 5 MG/ML 30 ML BTL (0.5%) ONE ×2 (12:49→14:04)
[2018-08-04] MEDS ORDERED: Ropivacaine* 2 MG/ML 20 ML VIAL (0.2%) ONE (12:50)
[2018-08-04] MEDS ORDERED: Ondansetron INJ* 2 MG/ML VIAL IV PRN ×2 (14:15→16:06)
[2018-08-04] MEDS ORDERED: Naloxone* 0.4 MG/ML 1 ML VIAL IV PRN (14:15)
[2018-08-04] MEDS ORDERED: DiMENhydriNATE IV* 50 MG/ML VIAL IV PUSH PRN (14:15)
[2018-08-04] MEDS ORDERED: HYDROmorphone INJ1* 1 MG/ML SYRINGE IV PRN (14:15)
[2018-08-04] MEDS ORDERED: fentaNYL* 50 MCG/ML 2 ML VIAL (100 MCG VIAL) IV PRN (14:15)
--- NOTE | 2018-08-04 15:54 | RAD ---
HISTORY: LEFT TOTAL HIP REPLACEMENT COMPARISONS: June 12, 2018 VIEWS: 1 , portable intraoperative view of the left hip at 2:50 PM FINDINGS: A single portable intraoperative view of the left hip was performed during hip arthroplasty. The patient is status post left hip arthroplasty with a temporary femoral sizing component. IMPRESSION: PORTABLE INTRAOPERATIVE VIEW OF THE LEFT HIP DURING ARTHROPLASTY.
[2018-08-04] MEDS ORDERED: diPHENhydraMINE IV* 50 MG/ML 1 ml VIAL (BENADRYL) IV PRN (16:06)
[2018-08-04] MEDS ORDERED: Bisacodyl SUPP* 10 MG SUPP PR PRN (16:06)
[2018-08-04] MEDS ORDERED: Morphine INJ* 2 MG/ML 1 ML SYRINGE (TWO MG - NEW SYRINGE VERSION) IV PRN (16:06)
[2018-08-04] MEDS ORDERED: oxyCODONE/Acetamin 5/325 MG* TAB PO PRN (16:06)
[2018-08-04] MEDS ORDERED: Magnesium Hydroxide LIQ* 30 ML UDC PO PRN (16:06)
[2018-08-04] MEDS ORDERED: Albuterol HFA INHALER* 8 gm MDI INH PRN (16:13)
--- NOTE | 2018-08-04 16:58 | RAD ---
HISTORY: S/P LTHA COMPARISONS: June 12, 2018 VIEWS: 3 , Frontal view of the pelvis with frontal and crosstable lateral views of the left hip FINDINGS: BONE DENSITY: Normal. BONES: The patient is status post left hip arthroplasty. There is no hardware failure or osteolysis. JOINTS: The patient is status post left hip arthroplasty. There is osteoarthritis of the right hip. ALIGNMENT: There is no dislocation. SOFT TISSUES: Unremarkable. OTHER FINDINGS: None. IMPRESSION: STATUS POST LEFT HIP ARTHROPLASTY
[2018-08-04] MEDS ORDERED: Warfarin TAB(*) 6 MG PO ONE (17:00)
[2018-08-04] MEDS ORDERED: Acetaminophen TAB* 325 MG PO SCH (17:00)
[2018-08-04] MEDS: oxyCODONE TAB* 5 MG TAB PO PRN (19:29)
[2018-08-04] MEDS: Mometasone/Formoter 200/5 MDI INH SCH (19:45)
[2018-08-04] MEDS: Docusate CAP* 100 MG PO SCH (21:54)
[2018-08-04] MEDS: Magnesium Hydroxide LIQ* 30 ML UDC PO SCH (21:54)
[2018-08-04] MEDS: oxyCODONE/Acetamin 5/325 MG* TAB PO PRN (21:55)
[2018-08-04] MEDS: Clindamycin 600 MG IVPREMIX(* 600 MG/50 ML SDV IV SCH (21:58)
[2018-08-04] MEDS: Acetaminophen TAB* 325 MG PO SCH (22:00)
[2018-08-04] MEDS: Cyclobenzaprine TAB* 10 MG PO PRN (22:03)
[2018-08-05] MEDS: oxyCODONE/Acetamin 5/325 MG* TAB PO PRN ×4 (02:58→16:57)
[2018-08-05 05:09] LABS: Hematocrit 33 % (35-47); Hemoglobin 11.2 g/dl (12.0-16.0); Platelet Count 186 10^3/ul (150-450)
[2018-08-05 05:14] LABS: INR 1.1 (0.77-1.02)
[2018-08-05 05:25] LABS: EGFR Non-African American 62.1 (>60)
[2018-08-05] MEDS: Clindamycin 600 MG IVPREMIX(* 600 MG/50 ML SDV IV SCH ×2 (05:44→12:55)
[2018-08-05] MEDS: Acetaminophen TAB* 325 MG PO SCH ×2 (05:45→12:57)
[2018-08-05] MEDS: oxyCODONE TAB* 5 MG TAB PO PRN ×2 (05:45→19:03)
[2018-08-05] MEDS: MIRABEGRON 25 MG PO SCH (08:26)
[2018-08-05] MEDS: Magnesium Hydroxide LIQ* 30 ML UDC PO SCH ×2 (08:27→20:58)
[2018-08-05] MEDS: Docusate CAP* 100 MG PO SCH ×2 (08:27→20:57)
[2018-08-05] MEDS: Vitamin THERAPEUTIC TAB PO SCH (08:27)
[2018-08-05] MEDS: Mometasone/Formoter 200/5 MDI INH SCH ×2 (08:28→20:19)
--- NOTE | 2018-08-05 11:08 | PN ---
Progress Note - Progress Note Date of Service: 08/05/18 SOAP: Subjective: []Patient seen and examined at bedside. She feels well with well controlled left hip pain. Confirms thigh muscle spasm improved with muscle relaxant. Denies chest pain, shortness of breath, dizziness, nausea. Objective: []General: Well appearing NAD LLE: left hip dressing CDI. Thigh is soft. Sensation intact. DF/PF intact. DP2+ . BL calves supple and nontender without erythema, edema or palpable cords. Assessment: []POD 1 sp left total hip arthroplasty Plan: []WBAT PT/OT Lovenox, coumadin. Coumadin 8 mg today Appt for massage by nursing Vital Signs Temp 98.0 F 08/05/18 07:26 Pulse 77 08/05/18 07:26 Resp 18 08/05/18 08:28 BP 123/63 08/05/18 07:26 Pulse Ox 99 08/05/18 08:00 Intake & Output 08/04/18 08/05/18 08/05/18 18:59 06:59 18:59 Intake Total 2200 2064 626 Output Total 750 2250 200 Balance 1450 -186 426 Weight 184 lb Intake: IV Fluids 2200 944 146 ABX - CLINDAMYCIN 55 55 CLINDAMYCIN 900MG 100 LR 2100 889 91 Oral 1120 480 Output: Urine 0 200 Mata 750 2250 Other: # Bowel Movements 0 Laboratory Last Values Hgb 11.2 g/dl (12.0-16.0) L 08/05/18 04:53 Hct 33 % (35-47) L 08/05/18 04:53 Plt Count 186 10^3/ul (150-450) 08/05/18 04:53 MPV 8.0 um3 (7.4-10.4) 08/05/18 04:53 INR (Anticoag Therapy) 1.10 (0.77-1.02) H 08/05/18 04:53 Sodium 137 mmol/L (135-145) 08/05/18 04:53 Potassium 3.6 mmol/L (3.5-5.0) 08/05/18 04:53 Chloride 103 mmol/L (101-111) 08/05/18 04:53 Carbon Dioxide 28 mmol/L (22-32) 08/05/18 04:53 Anion Gap 6 mmol/L (2-11) 08/05/18 04:53 BUN 16 mg/dL (6-24) 08/05/18 04:53 Creatinine 0.93 mg/dL (0.51-0.95) 08/05/18 04:53 Est GFR ( Amer) 75.2 (>60) 08/05/18 04:53 Est GFR (Non-Af Amer) 62.1 (>60) 08/05/18 04:53 BUN/Creatinine Ratio 17.2 (8-20) 08/05/18 04:53 Glucose 154 mg/dL (70-100) H 08/05/18 04:53 Calcium 8.4 mg/dL (8.6-10.3) L 08/05/18 04:53
[2018-08-05] MEDS ORDERED: Enoxaparin(*) 40 MG/0.4 ML SYR SUBCUT SCH (12:00)
[2018-08-05] MEDS: Enoxaparin(*) 40 MG/0.4 ML SYR SUBCUT SCH (12:14)
[2018-08-05] MEDS ORDERED: Warfarin TAB(*) 6 MG PO SCH (17:00)
--- NOTE | 2018-08-05 22:16 | OP ---
DATE OF OPERATION: 08/04/18 - ROOM #348 DATE OF : 62 ATTENDING SURGEON: Sandy Neves MD MIX HOUSE TENDER: SCOT Villatoro. Mr. Quiñones did help throughout the procedure with preparation of the leg, wound retraction, manipulation of the hip, and wound closure. ANESTHESIOLOGIST: Dr. Lee. ANESTHESIA: Spinal. PRE-OP DIAGNOSIS: Severe end-stage degenerative osteoarthritis of the left hip joint secondary to developmental dysplasia. POST-OP DIAGNOSIS: Severe end-stage degenerative osteoarthritis of the left hip joint secondary to developmental dysplasia. OPERATIVE PROCEDURE: Left total hip arthroplasty. COMPLICATIONS: None. ESTIMATED BLOOD LOSS: 300 cc. SPECIMENS: Femoral head and acetabular reaming sent to Pathology. BRIEF HISTORY/INDICATION: Ms. Jaramillo is a 58-year-old female with years of increasingly severe left hip pain. She failed conservative treatment with anti - inflammatories, pain medications, intra-articular injection, and physical therapy. Due to continued pain and decreased quality of life, she elected to undergo left total hip arthroplasty. Radiographs showed advanced arthritis. Informed consent was obtained from the patient. She understood the risks of surgery included, but were not limited to bleeding, infection, damage to nearby structures, continued pain, need for further surgery, intraoperative fracture, nerve palsy, hardware failure or loosening, dislocation, leg length discrepancies, stroke, heart attack, blood clot, and . She wished to proceed. INTRAOPERATIVE FINDINGS: Intraoperatively, the patient was noted to have dysplastic shallow acetabulum with significant osteophyte formation and complete loss of cartilage. She had a large amount of labral tearing and loss. Femoral head had complete loss of cartilage and significant osteophyte formation. She had a tight narrow femoral canal noted. HARDWARE: This is uncemented Tez total hip arthroplasty hardware. For the cup, a Tritanium cluster hole shell 50D. For the insert, a Trident X3 10- degree polyethylene insert 32D. For the stem, an Accolade TMZF size 1 with a 127-degree neck. For the head, a Biolox delta ceramic V40 femoral head 32 +0. DESCRIPTION OF PROCEDURE: Ms. Ron is a 58-year-old female who was identified in the preanesthesia unit. Her left lower extremity was marked as the correct operative side. Informed consent was signed and placed in the chart. The patient was taken to the operating room and placed under spinal anesthesia. A Mata catheter was placed. She was placed in the right lateral decubitus position on the peg board. All bony prominences were well padded. Left lower extremity was prepped and draped in the usual sterile fashion. Preop time-out was made to correctly identify the patient's side and site. Appropriate perioperative antibiotics were given within 1 hour of incision. A standard posterior hip incision was made with a 10-blade and carried down to the lateral fascial layer. There was at least 8 cm of subcutaneous fat, which did make exposure and retraction of this case more difficult. The fascial layer was incised in line with the skin incision. Charnley retractor was placed. The piriformis and conjoint tendons were identified off the posterolateral femur. These were elevated with electrocautery and tagged with # 5 Ethibond. Next, the electrocautery was used to make a standard posterior capsular flap. This was also tagged with #5 Ethibond. The hip was carefully dislocated. Lesser troch to center of the femoral head was measured at 55 mm. Oscillating saw was used to make the femoral neck cut and the femoral head was removed. After careful retraction, the acetabulum was visualized. Long-handled knife was used to sharply remove any remaining labrum from the acetabular rim. The acetabulum was noted to be shallow and dysplastic. The acetabulum was sequentially reamed up to a size 49. A 49 reamer obtained good fit with appropriate subchondral bleeding bone bed. A 49 trial had good fit. Final implant chosen was a Tritanium cluster hole shell 50D. This was impacted into the acetabulum without difficulty. The cup was stable with appropriate anteversion and abduction angle. A Trident X3 32D 10-degree polyethylene insert was impacted into the acetabulum. The insert was stable. Stability was checked and rechecked and noted to be appropriate. Next, attention was turned to preparation of the femoral canal. A canal finder was used to enter the femoral canal. Femoral canal was noted to be quite narrowing. The femur was sequentially broached up to a size 1. Size 1 had good fit and appropriate anteversion. A trial 127 neck was chosen with a 32 +0 head. Lesser troch to the center of the femoral head measured 56 mm. The hip was reduced and taken through range of motion. The hip was stable in all positions. Leg lengths and soft tissue tension were deemed to be appropriate. The hip was dislocated. All trials were removed. Final implant chosen was an Accolade TMZF size 1 with a 127-degree neck. The final implant was impacted into the femoral canal without difficulty. The stem had good stability and appropriate anteversion. A 32 +0 Biolox delta ceramic V40 femoral head was chosen as the final insert and this was impacted onto the femoral neck. Lesser troch to the center of the femoral head measured 56 mm. The hip was reduced and taken through a range of motion. The hip was noted to be stable in all positions. Previously tagged capsule and tendons were reapproximated to the posterolateral femur through 2 trochanteric drill holes. Lateral fascial layer was closed using interrupted #1 Vicryl. The rest of the incision was closed in a layered fashion using 0 and 2-0 Vicryl. Skin was closed using running 3-0 Monocryl and Dermabond. Sterile Adaptic, 4x4s, and paper tape were used to cover the incision. The patient's anesthesia was reversed without difficulty. She was taken to the PACU in stable condition. Intended weightbearing will be weightbearing as tolerated. Intended DVT prophylaxis will be Coumadin with a Lovenox bridge. [id number]/[facility] #: [id number] EFREN
[2018-08-06] MEDS: Cyclobenzaprine TAB* 10 MG PO PRN ×3 (00:07→18:50)
[2018-08-06] MEDS: oxyCODONE/Acetamin 5/325 MG* TAB PO PRN ×4 (00:08→18:49)
[2018-08-06] MEDS: Acetaminophen TAB* 325 MG PO SCH ×3 (01:22→15:59)
[2018-08-06 05:25] LABS: Hematocrit 30 % (35-47); Hemoglobin 10.3 g/dl (12.0-16.0); Mean Platelet Volume 7.9 um3 (7.4-10.4); Platelet Count 152 10^3/ul (150-450)
[2018-08-06 05:28] LABS: INR 1.79 (0.77-1.02)
[2018-08-06] MEDS: Docusate CAP* 100 MG PO SCH ×2 (07:47→21:37)
[2018-08-06] MEDS: Vitamin THERAPEUTIC TAB PO SCH (07:47)
[2018-08-06] MEDS: Magnesium Hydroxide LIQ* 30 ML UDC PO SCH ×2 (07:47→21:52)
[2018-08-06] MEDS: MIRABEGRON 25 MG PO SCH (07:48)
[2018-08-06] MEDS: Mometasone/Formoter 200/5 MDI INH SCH ×2 (08:41→19:36)
[2018-08-06] MEDS: Enoxaparin(*) 40 MG/0.4 ML SYR SUBCUT SCH (11:55)
--- NOTE | 2018-08-06 15:58 | PN ---
Progress Note - Progress Note Date of Service: 08/06/18 SOAP: Subjective: Patient seen and examined sitting in chair. She feels well with well controlled left hip pain. Confirms thigh muscle spasm improved with muscle relaxant. States that she is having trouble getting to the bathroom to urinate in time. Denies chest pain, shortness of breath, dizziness, nausea. Objective: General: Well appearing NAD LLE: left hip dressing changed, incision is c/d/i with no drainage. Thigh is soft. Sensation intact. DF/PF intact. DP2+. BL calves supple and nontender without erythema, edema or palpable cords. Vital Signs Temp 98.1 F 08/06/18 11:57 Pulse 88 08/06/18 11:57 Resp 16 08/06/18 11:57 BP 120/57 08/06/18 11:57 Pulse Ox 97 08/06/18 11:57 Intake & Output 08/05/18 08/06/18 08/06/18 18:59 06:59 18:59 Intake Total 1469 1080 1230 Output Total 1500 1550 400 Balance -31 -470 830 Intake: IV Fluids 539 ABX - CLINDAMYCIN 110 LR 429 Oral 930 1080 1230 Output: Urine 1500 1550 400 Emesis 0 Other: Estimated Void Small # Bowel Movements 0 Assessment: POD 2 sp left total hip arthroplasty Plan: WBAT PT/OT Lovenox, coumadin. Coumadin 4 mg today D/C home tomorrow
[2018-08-06] MEDS ORDERED: Warfarin TAB(*) 4 MG PO ONE (17:00)
[2018-08-07] MEDS: Acetaminophen TAB* 325 MG PO SCH ×2 (00:21→05:54)
[2018-08-07] MEDS: oxyCODONE/Acetamin 5/325 MG* TAB PO PRN (00:48)
[2018-08-07] MEDS: oxyCODONE TAB* 5 MG TAB PO PRN ×2 (04:12→11:42)
[2018-08-07 08:02] LABS: Hematocrit 31 % (35-47); Hemoglobin 10.5 g/dl (12.0-16.0); Mean Platelet Volume 7.9 um3 (7.4-10.4); Platelet Count 169 10^3/ul (150-450)
[2018-08-07 08:07] LABS: INR 1.96 (0.77-1.02)
[2018-08-07 08:11] VITALS: BP 128/67
[2018-08-07] MEDS: MIRABEGRON 25 MG PO SCH (08:41)
[2018-08-07] MEDS: Mometasone/Formoter 200/5 MDI INH SCH (08:42)
[2018-08-07] MEDS: Vitamin THERAPEUTIC TAB PO SCH (10:39)
[2018-08-07] MEDS: Magnesium Hydroxide LIQ* 30 ML UDC PO SCH (10:39)
[2018-08-07] MEDS: Docusate CAP* 100 MG PO SCH (10:39)
--- NOTE | 2018-08-07 11:04 | PN ---
Progress Note - Progress Note Date of Service: 08/07/18 SOAP: Subjective: POD #3 Left POP, doing well. Ready for d/c home. Denies CP/SOB, f/c, n/v Objective: Vitals: Temp Pulse Resp BP Pulse Ox 98.8 F 81 14 128/67 97 08/07/18 07:52 08/07/18 07:52 08/07/18 10:38 08/07/18 07:52 08/07/18 07:52 Gen: A&Ox3, NAD at rest sitting in chair Left hip: Dressing C/D/I, thigh soft, NT. +f/e at ankles and MTPs, N/V intact. Calf soft, NT Labs: Laboratory Results - last 24 hr 08/07/18 08/07/18 07:21 07:21 Hgb 10.5 L Hct 31 L Plt Count 169 MPV 7.9 INR (Anticoag Therapy) 1.96 H Assessment: POD #3 Left POP Plan: D/C home today INR 1.96 today, Coumadin 4mg through weekend Cont PT with VNS F/u with Dr. Neves 10-14 days
[2018-08-07] MEDS: Enoxaparin(*) 40 MG/0.4 ML SYR SUBCUT SCH (11:42)
== END 2018-08-07 13:45 | disposition home health service (06) | DRG 301 ==
LOC: AA 10:09 → SSU 18:25
PROVIDERS: ADMIT Orthopaedic Surgery Adult Reconstructive Orthopaedic Surgery; ATTEND Orthopaedic Surgery Adult Reconstructive Orthopaedic Surgery
PROC: 0SRB04A Replacement of Left Hip Joint with Ceramic on Polyethylene Synthetic Substitute, Uncemented, Open Approach (ICD-10-PCS; principal; 2018-08-04 13:00)
DX: M16.12 Unilateral primary osteoarthritis, left hip (principal); J44.9 Chronic obstructive pulmonary disease, unspecified; H40.9 Unspecified glaucoma; M06.9 Rheumatoid arthritis, unspecified; E78.5 Hyperlipidemia, unspecified; L40.50 Arthropathic psoriasis, unspecified; E55.9 Vitamin D deficiency, unspecified; M62.838 Other muscle spasm; E66.9 Obesity, unspecified; G62.9 Polyneuropathy, unspecified; M24.852 Other specific joint derangements of left hip, not elsewhere classified; M25.752 Osteophyte, left hip; Z85.41 Personal history of malignant neoplasm of cervix uteri; Z88.1 Allergy status to other antibiotic agents; Z83.3 Family history of diabetes mellitus; Z80.3 Family history of malignant neoplasm of breast; Z80.1 Family history of malignant neoplasm of trachea, bronchus and lung; Z82.3 Family history of stroke; Z82.5 Family history of asthma and other chronic lower respiratory diseases; Z88.7 Allergy status to serum and vaccine; Z98.42 Cataract extraction status, left eye; Z98.41 Cataract extraction status, right eye; Z82.49 Family history of ischemic heart disease and other diseases of the circulatory system; Z68.37 Body mass index [BMI] 37.0-37.9, adult; Q65.89 Other specified congenital deformities of hip
CPT/HCPCS: 36415; 72170; 80048; 85014; 85018; 85049; 85610; 94640; A9270-GY; J1100; J1650; J2250; J2405; J2704; J2795; J3010

== ENCOUNTER 2019-09-20 18:51 | Emergency (ER) | payer BC ==
[2019-09-20 21:10] VITALS: BP 141/75
--- NOTE | 2019-09-20 21:11 | UC ---
Abdominal Pain Female HPI - HPI Summary HPI Summary: 59 year old female presents with complaints of abdominal pain, nausea, and diarrhea. States on 09/16/1019 she developed some watery diarrhea that slowly improved and then subsided after 2 days. Yesterday she became nauseous again, had a few more episodes of diarrhea, and develop some epigastric pain that has persisted. States she has lightheadedness with position change. Reports last evening she developed a fever of 100.8 F. She has taken several doses of Pepto Bismol with no relief in symptoms. She is presently on Humira for RA. Denies chest pain, palpitations, SOB, diaphoresis, vomiting, blood in stool, melena, dysuria, frequency, urgency, or hematuria. - History of Current Complaint Chief Complaint: UCAbdominalPain Stated Complaint: UPSET STOMACH,DIZZY Time Seen by Provider: 09/20/19 20:32 Hx Obtained From: Patient Hx Last Menstrual Period: Seven months ago Pain Intensity: 6 Allergies/Adverse Reactions: Allergies Allergy/AdvReac Type Severity Reaction Status Date / Time soy Allergy Severe Shortness Verified 09/20/19 20:02 of Breath cephalexin [From Keflex] Allergy Intermediate Rash Verified 09/20/19 20:02 egg Allergy Intermediate Shortness Verified 09/20/19 20:02 of Breath erythromycin base Allergy Intermediate Hives Verified 09/20/19 20:02 Home Medications: Home Medications Adalimumab [Humira] 1 syr SEE INSTRUCTIONS 09/20/19 [History Confirmed 09/20/19] PMH/Surg Hx/FS Hx/Imm Hx - Additional Past Medical History Additional PMH: RA Respiratory History: COPD GI/ History: Other - OAB - Surgical History Surgical History: Yes Surgery Procedure, Year, and Place: Left Total Hip Arthroplasty, , [place]; L lumpectomy - 2006. cervical cancer. radiofrequency ablation for back pain - Family History Known Family History: Positive: Hypertension, Diabetes, Other - RA - Social History Occupation: Employed Full-time Lives: With Family Alcohol Use: None Substance Use Type: None Smoking Status (MU): Never Smoked Tobacco Have You Smoked in the Last Year: No - Immunization History Most Recent Influenza Vaccination: none Most Recent Pneumonia Vaccination: none Vaccination Up to Date: Yes Review of Systems All Other Systems Reviewed And Are Negative: Yes Constitutional: Positive: Fever Respiratory: Negative: Shortness Of Breath, Cough Cardiovascular: Negative: Palpitations, Chest Pain Gastrointestinal: Positive: Abdominal Pain, Diarrhea, Nausea. Negative: Vomiting Genitourinary: Negative: Dysuria, Hematuria, Frequency, Urgency, Vaginal/Penile Discharge Musculoskeletal: Positive: Negative Neurological: Positive: Negative Is Patient Immunocompromised?: Yes - On Humira Physical Exam - Summary Physical Exam Summary: GENERAL APPEARANCE: Alert and cooperative chronically ill appearing adult female who appears to be in no acute distress. CARDIAC: Normal S1 and S2. No S3, S4 or murmurs. Rhythm is regular. There is no peripheral edema, cyanosis or pallor. Extremities are warm and well perfused. Capillary refill is less than 2 seconds. Peripheral pulses intact. LUNGS: Clear to auscultation without rales, rhonchi, wheezing or diminished breath sounds. ABDOMEN: Positive bowel sounds. Soft, nondistended. Mild epigastric tenderness without guarding or rebound. No masses or hepatosplenomegally. No CVA tenderness. MUSKULOSKELETAL: ROM intact to all extremities. No joint erythema or tenderness. Normal muscular development. Normal gait. SKIN: Skin normal color, texture and turgor with no lesions or eruptions. Triage Information Reviewed: Yes Vital Signs: Initial Vital Signs Temp 98.5 F 09/20/19 20:05 Pulse 74 09/20/19 20:05 Resp 16 09/20/19 20:05 BP 133/67 09/20/19 20:05 Pulse Ox 99 09/20/19 20:05 Vital Signs Reviewed: Yes Abd Pain Female Course/Dx - Course Course Of Treatment: 59 year old female presents with complaints of abdominal pain, nausea, and diarrhea. States on 09/16/1019 she developed some watery diarrhea that slowly improved and then subsided after 2 days. Yesterday she became nauseous again, had a few more episodes of diarrhea, and develop some epigastric pain that has persisted. States she has lightheadedness with position change. Reports last evening she developed a fever of 100.8 F. She has taken several doses of Pepto Bismol with no relief in symptoms. She is presently on Humira for RA. Denies chest pain, palpitations, SOB, diaphoresis, vomiting, blood in stool, melena, dysuria, frequency, urgency, or hematuria. Afebrile. Vital signs stable. She was mildly orthostatic. On exam she was noted to have a soft, non-distended abdomen with mild epigastric pain without guarding or rebound. The remainder of her exam was unremarkable. I discuss with the patient that while her symptoms could be from a gastroenteritis, I could not rule out other more serious causes especially with her history of fever and being on Humira. I am recommending that she be further evaluated in the ED at this time to which she is agreeable. She is electing to transport via private vehicle. - Differential Dx/Diagnosis Differential Diagnosis: Gall Bladder Disease, Pancreatitis, Peptic Ulcer Disease , Other - Gastroenteritis Provider Diagnosis: Epigastric abdominal pain, Nausea, Lightheaded Discharge ED - Sign-Out/Discharge Documenting (check all that apply): Patient Departure All imaging exams completed and their final reports reviewed: No Studies - Discharge Plan Condition: Stable Disposition: HOME-RECOMMEND TO ED Patient Education Materials: Acute Abdominal Pain (ED) Referrals: Davi Donovan MD [Primary Care Provider] - Additional Instructions: Based on your history and exam I am recommending that you be further evaluated in the emergency room at this. Please go directly to the emergency room from here. Do not eat or drink anything until you have been evaluated. - Billing Disposition and Condition Condition: STABLE Disposition: Home-Recommend to ED
== END 2019-09-20 21:16 | disposition home health service (06) ==
LOC: UCCORT 18:51
DX: R10.13 Epigastric pain (principal); R11.0 Nausea; R42 Dizziness and giddiness; R19.7 Diarrhea, unspecified; J44.9 Chronic obstructive pulmonary disease, unspecified; M06.9 Rheumatoid arthritis, unspecified; R50.9 Fever, unspecified; Z88.1 Allergy status to other antibiotic agents; Z91.012 Allergy to eggs; Z91.018 Allergy to other foods; Z79.1 Long term (current) use of non-steroidal anti-inflammatories (NSAID)
CPT/HCPCS: 99212; G0463

== ENCOUNTER 2019-10-12 16:31 | Emergency (ER) | payer BC ==
[2019-10-12 17:06] VITALS: BP 149/67
--- NOTE | 2019-10-12 17:23 | UC ---
Lower Extremity/Ankle HPI - HPI Summary HPI Summary: 59 yo female presents with RIGHT ankle pain. She tells me that last year in September she twisted her right ankle in a pothole and ever since that time has had pain in the anterior aspect of her ankle. Has been worse over the month. Pain is worse with being on her feet all day. She did have an XR the day after her injury that was negative. Denies new injury, numbness, or tingling. Has been taking her at home pain medications for her pain with little relief. - History of Current Complaint Chief Complaint: UCGeneralIllness Stated Complaint: RT ANKLE COMPLAINT Time Seen by Provider: 10/12/19 17:22 Hx Obtained From: Patient Hx Last Menstrual Period: n/a Onset/Duration: Gradual Onset Severity Initially: Moderate Severity Currently: Moderate Pain Intensity: 6 Pain Scale Used: 0-10 Numeric Aggravating Factor(s): Standing, Ambulation Alleviating Factor(s): Rest - Allergies/Home Medications Allergies/Adverse Reactions: Allergies Allergy/AdvReac Type Severity Reaction Status Date / Time soy Allergy Severe Shortness Verified 10/12/19 17:00 of Breath cephalexin [From Keflex] Allergy Intermediate Rash Verified 10/12/19 17:00 egg Allergy Intermediate Shortness Verified 10/12/19 17:00 of Breath erythromycin base Allergy Intermediate Hives Verified 10/12/19 17:00 PMH/Surg Hx/FS Hx/Imm Hx - Additional Past Medical History Additional PMH: Chronic pain Respiratory History: COPD - Surgical History Surgical History: Yes Surgery Procedure, Year, and Place: Left Total Hip Arthroplasty, 07/2018, [place] ; L lumpectomy - 2006. cervical cancer. radiofrequency ablation for back pain - Family History Known Family History: Positive: Hypertension, Diabetes, Other - RA - Social History Lives: With Family Alcohol Use: None Substance Use Type: None Smoking Status (MU): Never Smoked Tobacco Have You Smoked in the Last Year: No - Immunization History Most Recent Influenza Vaccination: none Most Recent Pneumonia Vaccination: none Vaccination Up to Date: Yes Review of Systems All Other Systems Reviewed And Are Negative: No Constitutional: Positive: Negative Skin: Positive: Negative Respiratory: Positive: Negative Cardiovascular: Positive: Negative Neurovascular: Positive: Negative Musculoskeletal: Positive: Other: - Right ankle pain Neurological: Positive: Negative Psychological: Positive: Negative Physical Exam - Summary Physical Exam Summary: GENERAL: NAD. WDWN. No pain distress. SKIN: No rashes, sores, lesions, or open wounds. CHEST: No accessory muscle use. Breathing comfortably and in no distress. CV: Pulses intact PT and DP. Cap refill <2seconds MSK: RIGHT ANKLE: TTP about ATFL and anterior ankle without point tenderness. FROM without pain. Strength 5/5. No edema or obvious bony deformities. Negative talar tilt. No increased laxity. NEURO: Alert. Sensations intact and symmetric B/L LEs PSYCH: Age appropriate behavior. Triage Information Reviewed: Yes Vital Signs: Initial Vital Signs Temp 98.1 F 10/12/19 16:55 Pulse 73 10/12/19 16:55 Resp 17 10/12/19 16:55 BP 149/67 10/12/19 16:55 Pulse Ox 98 10/12/19 16:55 Vital Signs Reviewed: Yes Diagnostics - Radiology Ankle XR Radiology Interpretation Completed By: Radiologist Summary of Radiographic Findings: IMPRESSION: No fracture of the right ankle is noted. Lower Extremity Course/Dx - Course Course Of Treatment: XR as above. Unable to obtain CT of the ankle today. She was placed in a CAM boot for comfort and will refer her to Orthopedics for further evaluation. - Differential Dx/Diagnosis Provider Diagnosis: Ankle pain Discharge ED - Sign-Out/Discharge Documenting (check all that apply): Patient Departure All imaging exams completed and their final reports reviewed: Yes - Discharge Plan Condition: Stable Disposition: HOME Patient Education Materials: Arthralgia (ED) Referrals: Davi Donovan MD [Primary Care Provider] - Sandy Neves MD [Medical Doctor] - As Soon As Possible Additional Instructions: If you develop a fever, shortness of breath, chest pain, new or worsening symptoms - please call your PCP or go to the ED immediately. Your blood pressure was high at todays visit. Please see your primary provider within 4 weeks for recheck and re-evaluation. I recommend that you call Orthopedics at the number below to schedule an appointment for further evaluation of your continued ankle pain Your X-ray today was normal - Billing Disposition and Condition Condition: STABLE Disposition: Home
== END 2019-10-12 18:26 | disposition home or self-care (01) ==
LOC: UCCORT 16:31
DX: M25.571 Pain in right ankle and joints of right foot (principal); J44.9 Chronic obstructive pulmonary disease, unspecified; Z91.018 Allergy to other foods; Z88.1 Allergy status to other antibiotic agents; Z91.012 Allergy to eggs
CPT/HCPCS: 99213; G0463